=== PATIENT | male | born 1960 | race Caucasian/White ===

== ENCOUNTER 2017-03-11 17:49 | Emergency (ER) | payer OTHER ==
[~2017-03-11] VITALS: Ht 170.2 cm; Wt 70.0 kg
[~2017-03-11 17:49] MED LIST: ALPRAZOLAM1 MG PO; AMOXICILLIN500 MG PO; ANTIVERT PO; CEPHALEXIN500 MG PO; DILTIAZEM HCL120 M1 PO; DOXYCYCL HYC100 MG PO; DUONEB IN; FLUARIX QUADRIV1 IN2 IM; FLUTICASONE50 MCG; FUROSEMIDE40 MG PO; LISINOPRIL5 MG PO; LORTAB 1010 MG PO; LORTAB 5/3255 MG PO; MEDDOSEPAK PO; METFORMIN HCL1000 MG PO; METFORMIN500 MG PO; MORPHINE SUL30 M3 PO; MORPHINE SUL30 M5 PO; MUPIROCIN2 % EX; NASONEX50 MCG/AC NAB; NEBULIZE4 IN; OXYMORPHONE HYD30 MG PO; POTASSIUM CHLO10 MEQ PO; PRAVASTATIN20 MG PO; PROAIR HFA IN; PROMETHAZINE25 MG PO; ROBITUSSIN AC10 ML PO; SINGULAIR PO; SOMA350 MG PO; SONATA5 MG PO; SYMBICORT1 AE1 IN; ZITHROMAX250 MG PO
[2017-03-11] MEDS ORDERED: PERCOCET 5/325M1 TAB PO (18:12)
[2017-03-11 18:27] VITALS: BP 142/81
== END 2017-03-11 18:33 | disposition home or self-care (01) | DRG 159 ==
LOC: ED 17:49
DX: K08.89 Other specified disorders of teeth and supporting structures (principal); E11.9 Type 2 diabetes mellitus without complications; I10 Essential (primary) hypertension; E78.5 Hyperlipidemia, unspecified; Z98.890 Other specified postprocedural states

== ENCOUNTER 2017-04-21 08:35 | Emergency (ER) | payer MEDICARE ==
[~2017-04-21] VITALS: Ht 170.2 cm; Wt 90.0 kg
[~2017-04-21 08:35] MED LIST changes: +PERCOCET 5/325M1 TAB PO
[2017-04-21] MEDS ORDERED: ANUCORT-HC25 MG RE (10:25)
[2017-04-21 10:30] VITALS: BP 138/82
== END 2017-04-21 10:30 | disposition home or self-care (01) ==
LOC: ED 08:35
DX: K64.4 Residual hemorrhoidal skin tags (principal)

== ENCOUNTER 2017-04-28 13:48 | Emergency (ER) | payer MEDICARE ==
[~2017-04-28] VITALS: Ht 170.2 cm; Wt 88.4 kg
[~2017-04-28 13:48] MED LIST changes: +ANUCORT-HC25 MG RE
[2017-04-28] MEDS ORDERED: LORTAB 5/3255 MG PO (14:44)
[2017-04-28] MEDS ORDERED: FLEXERIL PO (14:44)
[2017-04-28] MEDS ORDERED: EC-NAPROSYN500 MG PO (14:44)
[2017-04-28 14:46] VITALS: BP 140/78
== END 2017-04-28 15:20 | disposition home or self-care (01) ==
LOC: ED 13:48
DX: M54.5 Low back pain (principal)

== ENCOUNTER 2018-05-20 09:22 | Emergency (ER) | payer MEDICARE ==
[~2018-05-20] VITALS: Ht 170.2 cm; Wt 96.8 kg
[~2018-05-20 09:22] MED LIST changes: -CEPHALEXIN500 M1 PO; -DOXYCYC MONO100 M2 PO; -HYDROCO/APAP1 TA9 PO
[2018-05-20 10:16] LABS: IMMATURE GRANULOCYTES 0.3 % (0.0-5.0); MEAN CORPUSCULAR HGB 30.8 pG CALC (26.0-32.0); MEAN CORPUSCULAR HGB CONC 33.9 g/L CALC (32.0-36.0); NEUT# 5.22 thou/uL (1.82-7.42); RED BLOOD COUNT 4.12 mill/uL (4.70-6.10); RED CELL DISTRI WIDTH 12.6 % (11.5-15.5)
[2018-05-20 10:18] LABS: HEMATOCRIT 37.5 % (39.0-50.0); HEMOGLOBIN 12.7 g/dl (14.0-18.0)
[2018-05-20 10:31] LABS: ALBUMIN 4.2 g/dL (3.2-5.0); ALKALINE PHOSPHATASE 69 u/l (38-126); ANION GAP 14 (6-22 (CALC)); BILIRUBIN, TOTAL 1.1 mg/dL (0.0-1.4); BUN 13 mg/dL (9-20); BUN/CREATININE RATIO 16 (12-20 (CALC)); CARBON DIOXIDE 27 mmol/l (22-30); CHLORIDE 98 mmol/l (95-108); CREATININE 0.8 mg/dL (0.7-1.3); GFR > 60 ML/MIN (>=60 (CALC)); GFR FOR AFR.AMER. > 60 ML/MIN (>=60 (CALC)); SGOT/AST 31 u/l (17-59); SODIUM 135 mmol/l (137-146); TOTAL PROTEIN 7.3 g/dL (6.3-8.2)
[2018-05-20] MEDS ORDERED: CEPHALEXIN500 M1 PO (10:53)
[2018-05-20] MEDS ORDERED: DOXYCYC MONO100 M2 PO (10:53)
[2018-05-20] MEDS ORDERED: HYDROCO/APAP1 TA9 PO (11:20)
[2018-05-20 13:30] VITALS: BP 117/62
== END 2018-05-20 13:30 | disposition home or self-care (01) ==
LOC: ED 09:22
PROVIDERS: Family Medicine
DX: S61.212A Laceration without foreign body of right middle finger without damage to nail, initial encounter (principal); L03.113 Cellulitis of right upper limb; R22.31 Localized swelling, mass and lump, right upper limb; R50.9 Fever, unspecified; W25.XXXA Contact with sharp glass, initial encounter; Y93.H9 Activity, other involving exterior property and land maintenance, building and construction; Y92.009 Unspecified place in unspecified non-institutional (private) residence as the place of occurrence of the external cause; E11.9 Type 2 diabetes mellitus without complications; E78.5 Hyperlipidemia, unspecified; I10 Essential (primary) hypertension

== ENCOUNTER → 2018-05-20 | Outpatient (REF) | payer MEDICARE ==
[~2018-05-20] MED LIST changes: +CEPHALEXIN500 M1 PO; +DOXYCYC MONO100 M2 PO; +EC-NAPROSYN500 MG PO; +FLEXERIL PO; +HYDROCO/APAP1 TA9 PO
[2018-05-20 13:51] LABS: HEMATOCRIT 36.6 % (39.0-50.0); HEMOGLOBIN 12.5 g/dl (14.0-18.0); IMMATURE GRANULOCYTES 0.3 % (0.0-5.0); MEAN CELL VOLUME 91.5 fL CALC (80.0-100.0); MEAN CORPUSCULAR HGB 31.3 pG CALC (26.0-32.0); MEAN CORPUSCULAR HGB CONC 34.2 g/L CALC (32.0-36.0); NEUT# 4.93 thou/uL (1.82-7.42); RED CELL DISTRI WIDTH 12.6 % (11.5-15.5)
[2018-05-20 14:26] LABS: ALKALINE PHOSPHATASE 66 u/l (38-126); ANION GAP 14 (6-22 (CALC)); BILIRUBIN, TOTAL 1.9 mg/dL (0.0-1.4); BUN 11 mg/dL (9-20); BUN/CREATININE RATIO 13 (12-20 (CALC)); CALCULATED LDLCHOLESTEROL 62 mg/dL (62-129 (CALC)); CARBON DIOXIDE 28 mmol/l (22-30); CHLORIDE 100 mmol/l (95-108); CHOLESTEROL HDL RATIO 2.8 (<4.4 (CALC)); CREATININE 0.9 mg/dL (0.7-1.3); GFR > 60 ML/MIN (>=60 (CALC)); GFR FOR AFR.AMER. > 60 ML/MIN (>=60 (CALC)); HDL CHOLESTEROL 49 mg/dL (>=40); POTASSIUM 4.3 mmol/l (3.5-5.1); SGOT/AST 31 u/l (17-59); SODIUM 138 mmol/l (137-146); TOTAL CHOLESTEROL 138 mg/dl (0-199); TOTAL PROTEIN 6.9 g/dL (6.3-8.2); TOTAL TRIGLYCERIDES 133 mg/dl (30-149); VLDL CHOLESTROL 27 mg/dl (8-62 (CALC))
== END | disposition home or self-care (01) ==
LOC: LAB 13:26
PROVIDERS: ATTEND Nurse Practitioner Family
DX: E11.9 Type 2 diabetes mellitus without complications (principal); E78.5 Hyperlipidemia, unspecified; I10 Essential (primary) hypertension

== ENCOUNTER 2018-05-21 09:52 | Emergency (ER) | payer MEDICARE ==
[~2018-05-21] VITALS: Ht 170.2 cm; Wt 90.0 kg
[2018-05-21 13:03] VITALS: BP 149/71
== END 2018-05-21 13:03 | disposition left against medical advice (07) ==
LOC: ED 09:52
DX: L03.011 Cellulitis of right finger (principal); S61.212D Laceration without foreign body of right middle finger without damage to nail, subsequent encounter; X58.XXXD Exposure to other specified factors, subsequent encounter; E11.9 Type 2 diabetes mellitus without complications; I10 Essential (primary) hypertension; E78.5 Hyperlipidemia, unspecified; Z91.19 Patient's noncompliance with other medical treatment and regimen

== ENCOUNTER → 2018-05-21 | Outpatient (REF) | payer MEDICARE ==
[~2018-05-21] MED LIST changes: +CEPHALEXIN500 M1 PO; +DOXYCYC MONO100 M2 PO; +HYDROCO/APAP1 TA9 PO
== END | disposition home or self-care (01) ==
LOC: LABSPEC 09:51
PROVIDERS: ATTEND Nurse Practitioner Family
DX: E11.9 Type 2 diabetes mellitus without complications (principal); E78.5 Hyperlipidemia, unspecified; I10 Essential (primary) hypertension

== ENCOUNTER 2019-09-06 18:33 | Emergency (ER) | payer MEDICARE ==
[~2019-09-06] VITALS: Ht 170.2 cm; Wt 98.6 kg
[2019-09-06 19:15] LABS: GFR 57 ML/MIN (>=60 (CALC)); GFR FOR AFR.AMER. > 60 ML/MIN (>=60 (CALC))
[2019-09-06 19:17] LABS: IMMATURE GRANULOCYTES 0.3 % (0.0-5.0); MEAN CELL VOLUME 90.1 fL CALC (80.0-100.0); MEAN CORPUSCULAR HGB 31.2 pG CALC (26.0-32.0); MEAN CORPUSCULAR HGB CONC 34.7 g/dL CAL (32.0-36.0); NEUT# 2.96 thou/uL (1.82-7.42); RED BLOOD COUNT 3.65 mill/uL (4.70-6.10); RED CELL DISTRI WIDTH 12.4 % (11.5-15.5)
[2019-09-06 19:26] LABS: HEMATOCRIT 32.9 % (39.0-50.0); HEMOGLOBIN 11.4 g/dl (14.0-18.0)
[2019-09-06 19:33] LABS: ALBUMIN 3.8 g/dL (3.2-5.0); ALKALINE PHOSPHATASE 52 u/l (38-126); ANION GAP 11 (6-22 (CALC)); BUN 17 mg/dL (9-20); BUN/CREATININE RATIO 14 (12-20 (CALC)); CARBON DIOXIDE 25 mmol/l (22-30); CHLORIDE 103 mmol/l (95-108); CREATININE 1.3 mg/dL (0.7-1.3); GFR 57 ML/MIN (>=60 (CALC)); GFR FOR AFR.AMER. > 60 ML/MIN (>=60 (CALC)); POTASSIUM 4.7 mmol/l (3.5-5.1); SGOT/AST 34 u/l (17-59); SODIUM 134 mmol/l (137-146)
[2019-09-06 19:35] LABS: ACT PARTIAL THROMBO TIME 26.7 SECONDS (20.0-32.5); PROTHROMBIN TIME 10.1 SECONDS (9.0-12.5)
[2019-09-06 19:45] LABS: MYOGLOBIN 57 ng/mL (0 - 121)
[2019-09-06 19:51] LABS: BILIRUBIN, TOTAL 0.8 mg/dL (0.0-1.4)
[2019-09-06 22:15] VITALS: BP 116/60
== END 2019-09-06 22:38 | disposition short-term general hospital (02) ==
LOC: ED 18:33
DX: I63.9 Cerebral infarction, unspecified (principal); I67.1 Cerebral aneurysm, nonruptured; G81.91 Hemiplegia, unspecified affecting right dominant side; R29.810 Facial weakness; R20.0 Anesthesia of skin; R47.01 Aphasia; R47.1 Dysarthria and anarthria; R29.706 NIHSS score 6; E11.9 Type 2 diabetes mellitus without complications; I10 Essential (primary) hypertension; Z79.84 Long term (current) use of oral hypoglycemic drugs; Z11.59 Encounter for screening for other viral diseases
CPT/HCPCS: Q9967

== ENCOUNTER 2020-08-01 20:52 | Emergency (ER) | payer MEDICARE ==
[~2020-08-01] VITALS: Ht 170.2 cm; Wt 84.5 kg
[2020-08-01 22:10] LABS: HEMATOCRIT 35.6 % (39.0-50.0); HEMOGLOBIN 11.5 g/dl (14.0-18.0); IMMATURE GRANULOCYTES 0.1 % (0.0-5.0); MEAN CELL VOLUME 93.2 fL CALC (80.0-100.0); MEAN CORPUSCULAR HGB 30.1 pG CALC (26.0-32.0); MEAN CORPUSCULAR HGB CONC 32.3 g/dL CAL (32.0-36.0); NEUT# 4.49 thou/uL (1.82-7.42); RED BLOOD COUNT 3.82 mill/uL (4.70-6.10); RED CELL DISTRI WIDTH 12.7 % (11.5-15.5)
[2020-08-01 22:17] LABS: ALBUMIN 4.4 g/dL (3.2-5.0); ALKALINE PHOSPHATASE 59 u/l (38-126); ANION GAP 9 (6-22 (CALC)); BILIRUBIN, TOTAL 0.9 mg/dL (0.0-1.4); BUN 27 mg/dL (9-20); BUN/CREATININE RATIO 22 (12-20 (CALC)); CARBON DIOXIDE 31 mmol/l (22-30); CHLORIDE 97 mmol/l (95-108); CREATININE 1.3 mg/dL (0.7-1.3); GFR 57 ML/MIN (>=60 (CALC)); GFR FOR AFR.AMER. > 60 ML/MIN (>=60 (CALC)); POTASSIUM 4.6 mmol/l (3.5-5.1); SGOT/AST 50 u/l (17-59); SODIUM 133 mmol/l (137-146)
[2020-08-01 22:29] LABS: URINE BILIRUBIN - DIPSTICK NEGATIVE (NEGATIVE); URINE BLOOD DIPSTICK NEGATIVE (NEGATIVE); URINE COLOR YELLOW; URINE GLUCOSE - DIPSTICK NEGATIVE (NEGATIVE); URINE KETONE NEGATIVE (NEGATIVE); URINE LEUK ESTERASE NEGATIVE (NEGATIVE); URINE PROTEIN - DIPSTICK NEGATIVE (NEG-TRACE); URINE UROBILINOGEN - DIPSTICK 0.2 E.U./dL (0.2)
[2020-08-01 22:35] LABS: URINE NITRITE - DIPSTICK NEGATIVE (Negative)
[2020-08-02 01:17] VITALS: BP 136/80
== END 2020-08-02 01:24 | disposition home or self-care (01) ==
LOC: ED 20:52
PROVIDERS: Family Medicine
PROC: 0T9B70Z Drainage of Bladder with Drainage Device, Via Natural or Artificial Opening (ICD-10-PCS; principal; 2020-08-01)
DX: R33.9 Retention of urine, unspecified (principal); I10 Essential (primary) hypertension; E11.9 Type 2 diabetes mellitus without complications; E78.5 Hyperlipidemia, unspecified; Z86.73 Personal history of transient ischemic attack (TIA), and cerebral infarction without residual deficits; Z79.4 Long term (current) use of insulin

== ENCOUNTER 2020-08-06 18:27 | Emergency (ER) | payer MEDICARE ==
[~2020-08-06] VITALS: Ht 170.2 cm; Wt 90.0 kg
[2020-08-06 19:17] VITALS: BP 124/90
== END 2020-08-06 19:18 | disposition home or self-care (01) ==
LOC: ED 18:27
DX: Z46.6 Encounter for fitting and adjustment of urinary device (principal); E11.9 Type 2 diabetes mellitus without complications; I10 Essential (primary) hypertension; E78.5 Hyperlipidemia, unspecified; Z86.73 Personal history of transient ischemic attack (TIA), and cerebral infarction without residual deficits; Z79.84 Long term (current) use of oral hypoglycemic drugs

== ENCOUNTER 2020-08-12 07:52 | Emergency (ER) | payer MEDICARE ==
[~2020-08-12] VITALS: Ht 170.2 cm; Wt 74.0 kg
[2020-08-12] MEDS ORDERED: GABAPENTIN300 M2 PO (09:29)
[2020-08-12] MEDS ORDERED: LANTUS100 UNIT SI (09:31)
[2020-08-12] MEDS ORDERED: XANAX0.5 MG PO (09:33)
[2020-08-12] MEDS ORDERED: ASPIRIN81 MG PO (09:33)
[2020-08-12] MEDS ORDERED: FLEXERIL5 M1 PO (09:49)
[2020-08-12] MEDS ORDERED: TORADOL PO (09:49)
[2020-08-12 09:56] VITALS: BP 130/72
== END 2020-08-12 10:00 | disposition home or self-care (01) ==
LOC: ED 07:52
DX: S06.9X9A Unspecified intracranial injury with loss of consciousness of unspecified duration, initial encounter (principal); S96.911A Strain of unspecified muscle and tendon at ankle and foot level, right foot, initial encounter; S50.11XA Contusion of right forearm, initial encounter; S60.212A Contusion of left wrist, initial encounter; S80.01XA Contusion of right knee, initial encounter; S30.0XXA Contusion of lower back and pelvis, initial encounter; S20.229A Contusion of unspecified back wall of thorax, initial encounter; I10 Essential (primary) hypertension; E11.9 Type 2 diabetes mellitus without complications; E78.5 Hyperlipidemia, unspecified; W10.9XXA Fall (on) (from) unspecified stairs and steps, initial encounter; Y92.009 Unspecified place in unspecified non-institutional (private) residence as the place of occurrence of the external cause; Z86.73 Personal history of transient ischemic attack (TIA), and cerebral infarction without residual deficits; Z79.82 Long term (current) use of aspirin; Z79.4 Long term (current) use of insulin

== ENCOUNTER 2020-10-11 12:25 | Inpatient (IN) | payer MEDICARE ==
[~2020-10-11] VITALS: Ht 170.2 cm; Wt 93.0 kg
[~2020-10-11 12:25] MED LIST changes: +ASPIRIN81 MG PO; +FLEXERIL5 M1 PO; +GABAPENTIN300 M2 PO; +LANTUS100 UNIT SI; +TORADOL PO; +XANAX0.5 MG PO
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
--- NOTE | 2020-10-11 12:25 | NUR ---
PATIENT ARRIVED EMS INTUBATED 7.5 FR AND 21 AT THE LIP POSITIVE BREATH SOUNDS BILATERALLY
[2020-10-11 13:05] LABS: ACT PARTIAL THROMBO TIME 22.5 SECONDS (20.0-32.5); PROTHROMBIN TIME 10.5 SECONDS (9.0-12.5)
[2020-10-11 13:11] LABS: HEMATOCRIT 34.1 % (39.0-50.0); HEMOGLOBIN 11.7 g/dl (14.0-18.0); IMMATURE GRANULOCYTES 0.3 % (0.0-5.0); MEAN CELL VOLUME 89.7 fL CALC (80.0-100.0); MEAN CORPUSCULAR HGB 30.8 pG CALC (26.0-32.0); MEAN CORPUSCULAR HGB CONC 34.3 g/dL CAL (32.0-36.0); NEUT# 5.88 thou/uL (1.82-7.42); RED BLOOD COUNT 3.8 mill/uL (4.70-6.10); RED CELL DISTRI WIDTH 12.4 % (11.5-15.5)
[2020-10-11 13:14] LABS: ALBUMIN 4.1 g/dL (3.2-5.0); ALKALINE PHOSPHATASE 66 u/l (38-126); BILIRUBIN, TOTAL 0.9 mg/dL (0.0-1.4); BUN 25 mg/dL (9-20); BUN/CREATININE RATIO 17 (12-20 (CALC)); CHLORIDE 100 mmol/l (95-108); CREATININE 1.5 mg/dL (0.7-1.3); GFR 48 ML/MIN (>=60 (CALC)); GFR FOR AFR.AMER. 58 ML/MIN (>=60 (CALC)); LIPASE 205 u/l (23-300); MAGNESIUM 1.8 mg/dL (1.6-2.3); POTASSIUM 4.4 mmol/l (3.5-5.1); SGOT/AST 39 u/l (17-59); SODIUM 131 mmol/l (137-146); TOTAL PROTEIN 7.6 g/dL (6.3-8.2)
[2020-10-11 13:15] LABS: ANION GAP 15 (6-22 (CALC)); CARBON DIOXIDE 20 mmol/l (22-30)
[2020-10-11 13:21] LABS: URINE BLOOD DIPSTICK NEGATIVE (NEGATIVE); URINE COLOR YELLOW; URINE GLUCOSE - DIPSTICK 100 mg/dL (NEGATIVE); URINE KETONE TRACE mg/dL (NEGATIVE); URINE LEUK ESTERASE NEGATIVE (NEGATIVE); URINE PH 5.5 (4.5-8.0); URINE PROTEIN - DIPSTICK 30 mg/dL (NEG-TRACE); URINE SPECIFIC GRAVITY >=1.030; URINE UROBILINOGEN - DIPSTICK 0.2 E.U./dL (0.2)
[2020-10-11 13:27] LABS: URINE BILIRUBIN - DIPSTICK NEGATIVE (NEGATIVE); URINE NITRITE - DIPSTICK NEGATIVE (Negative)
--- NOTE | 2020-10-11 13:30 | NUR ---
PATIENT AWAKE UNDER SEDATION MD NOTIFIED PATIENT TRYING TO PULL AND EQUIPMENT
[2020-10-11 13:35] LABS: URINE HYALINE CAST MODERATE lpf (NONE-RARE); URINE SQUAMOUS EPITHELIAL CELL FEW EPI/hpf (0-FEW)
--- NOTE | 2020-10-11 13:45 | NUR ---
TAMI 100MCG IVP ADMINSTERED BY DR NUGENT
--- NOTE | 2020-10-11 14:30 | NUR ---
PATIENT REMAINS AWAKE WITH SEDATION MEDICATIONS ON BOARD VERBAL ORDERS RECIEVED AND DIPRIVAN BOLUS 100MCG ADMINSTERED IVP BY DR NUGENT
--- NOTE | 2020-10-11 14:45 | NUR ---
TAMI 50MCG IVP ADMINSTERED BY DR NUGENT
--- NOTE | 2020-10-11 15:12 | NUR ---
ALL SEDATION STOPPED PATIENT AWAKE AND RESPONDING WITH EYE BLINKING AND HAND GRASPS WHEN ASKED QUESTIONS. MD AT BEDSIDE WITH RESPIRATORY.
--- NOTE | 2020-10-11 15:14 | NUR ---
PATIENT EXTUBATED PATIENT ALERT AND ORIENTED TIMES THREE GAG REFLEX INTACT. PATIENT ANSWERING QUESTIONS WITH MD AT BEDSIDE. PATIENT STATES JUST FELL AND FACE PLANTED.
--- NOTE | 2020-10-11 15:24 | NUR ---
PER DR. NUGENT EXTUBATED PT. PT SECTIONED AND EXTUBATED. MD AT BEDSIDE DURING EXTUBATION.
--- NOTE | 2020-10-11 15:34 | NUR ---
1228 C- COLLAR APPLIED 1230 PROPOFOL STARTED 10MCG/KG/MIN/ SECONDARY IV INITIATED 1233 BOLUS SODIUM CHLORIDE 0.9% 200ML VIA PRESSURE BAG STARTED 1234 HER CATHTER 16 FR INSERTED USING STERILE TECHNIQUE 1242 4MG VERSED VIA IV GIVEN 1245 16FR OG TUBE INSERTED VERIFIED VIA POSITIVE AIR SOUNDS 1246 20MG ETOMIDATE IVP BY PHYSICIAN 1246 50 MCG FENTANYL IVP PATIENT AWAKE AND FOLLOWING COMMANDS VIA EYE BLINKING AND HAND GRASPS WHEN ASKED QUESTIONS 1248 PATIENT PATIENT SEDATED AND ROCURONIUM 100MG ADMINSTERED IVP 1250 200ML BOLUS OF SODIUM CHLORIDE 0.9% COMPLETED 1254 DIPROVAN STOPPED AND VERSED DRIP VIA IV INITIATED AT 10ML/HR 1303 DIPRIVAN RESTARTED AT 5MCG/KG/MIN 1308 EKG COMPLETED 1447 FENTANYL 100MCG IVP 1454 C-SPINE CLEARED AND REMOVED
--- NOTE | 2020-10-11 16:39 | NUR ---
PATIENT TRANSPORTED TO ICU AWAKE ALERT AND ORIENTED TIMES THREE. 1800 ML CLEAR STRAW COLORED URINE REMOVED FROM HER BAG
--- NOTE | 2020-10-11 16:45 | NUR ---
RECEIVED FROM ER TO ICU 8. ALERT AND ORIENTED X4. PERRL. EXPRESSES C/O PAIN TO NOSE AND RIGHT UPPER BACK. MOVES ALL EXTRIMITIES. S1-S2 HEART TONES NOTED. LUNGS SOUNDS CLEAR. ROOM AIR. ABD ROUND, SOFT, DISTENDED. HER CATH INTACT CLEAR YELLOW URINE NOTED. PEDAL PULSE BILAT 2+. ORIENTED TO ROOM. CALL LIGHT WITHIN REACH.
[2020-10-11 17:00] VITALS: BP 113/66
[2020-10-11 17:15] VITALS: BP 114/78
[2020-10-11 17:30] VITALS: BP 112/75
[2020-10-11 17:45] VITALS: BP 140/61
--- NOTE | 2020-10-11 18:20 | NUR ---
PT ARRIVES TO ROOM 8 IN ICU BY STRETCHER FROM ER, SEEN ALERT AND ORIENTED X 3. PT WITH PAIN TO NOSE WHERE SMALL LAC IN SEEN. PT WISHES THAT HE COULD BLOW HIS NOSE, BUT PAIN PREVENTS HIM. PT DENIES DIZZINESS, SHORTNESS OF BREATH.
[2020-10-11 19:18] VITALS: BP 111/63
--- NOTE | 2020-10-11 20:15 | NUR ---
PATIENT IS RESTING IN BED ON ROUNDS. PATIENT ALERT AND ORIENTED. FACE SYMMETRICAL. SPEECH CLEAR AND APPROPRIATE. FOLLOWS COMMANDS. PATIENT STATES [facility] HAS NOT PROVIDED HIM WITH ANY RELIEF OF HIS HEADACHE, FACIAL AND NOSE DISCOMFORTS. SOME OOZING OF BLOOD FROM LACERATION TO BRIDGE OF NOSE. NOSE SWOLLEN. COOL PACK APPLIED. SALINE LOCK INTACT IN RAC. RFA SITE FLUSHED AND PATENT, NS STARTED AT 100 ML/HR ORDERED. LFA EMS SITE DC'D WITH CATHETER INTACT. HER DRAINS CLEAR YELLOW URINE. MANAGER BABY SHOWS SR. DISCUSSED PLAN OF CARE. CALL CHAUDHRY IN REACH.
--- NOTE | 2020-10-11 21:11 | NUR ---
INFORMED DR RASMUSSEN OF PATIENT C/O PAIN. NEW ORDERS RECEIVED.
--- NOTE | 2020-10-11 21:20 | NUR ---
CALL TO PATIENT HOME SPOKE WITH HIS MOTHER REGARDING HOME MEDICATIONS. PATIENT MOM STATES SHE CANT REACH THEM AND SHE WILL HAVE PATIENTS DAUGHTER PHONE ICU TO GIVE US HOME MED LIST.
[2020-10-11 22:00] VITALS: BP 136/71
--- NOTE | 2020-10-11 22:25 | NUR ---
SEMAJ HOLLOWAY APPLIED. PATIENT C/O HURTING ALL OVER, ESPECIALLY HEADACHE AND NOSE PAIN. MEDICATED WITH MORPHINE 2 MG IVP ORDERED FOR C/O PAIN. LACERATION TO BRIDGE OF NOSE CLEANSED WITH WOUND CARE SOLUTION- XERORM 2X2 COVERED WITH STERILE 2X2 TO SITE, SECURED WITH SMALL TEGADERM. ICE BAG TO TOP OF HEAD AND COOL PACK TO BRIDGE OF NOSE. VSS. MONITOR SR.
[2020-10-12] VITALS (12 sets, daily range): BP systolic 104–130; BP diastolic 58–72
--- NOTE | 2020-10-12 | NUR ---
SLEEPING SOUNDLY. RESP NON-LABORED. VSS.
--- NOTE | 2020-10-12 02:00 | NUR ---
VSS. IV INFUSING WITHOUT INCIDENT. SR ON MONITOR. PATIENT CONTINUES TO REST QUIETLY WITH EYES CLOSED.
--- NOTE | 2020-10-12 04:10 | NUR ---
NO CHANGES TO REPORT. IN NO APPARENT DISTRESS. VSS. RESP NON-LABORED.
--- NOTE | 2020-10-12 05:31 | NUR ---
MEDICATED WITH MORPHINE 2 MG IVP ORDERED FOR C/O HEADACHE, NOSE PAIN AND GENERALIZED BODY ACHES.
[2020-10-12 05:43] LABS: HEMATOCRIT 33.5 % (39.0-50.0); HEMOGLOBIN 11.6 g/dl (14.0-18.0); MEAN CELL VOLUME 90.8 fL CALC (80.0-100.0); MEAN CORPUSCULAR HGB 31.4 pG CALC (26.0-32.0); MEAN CORPUSCULAR HGB CONC 34.6 g/dL CAL (32.0-36.0); RED BLOOD COUNT 3.69 mill/uL (4.70-6.10); RED CELL DISTRI WIDTH 12.7 % (11.5-15.5)
--- NOTE | 2020-10-12 05:57 | NUR ---
RESTING IN BED WATCHING MORNING NEWS. PATIENT STATES PAIN IS EASING.
[2020-10-12 06:07] LABS: ANION GAP 12 (6-22 (CALC)); BUN 14 mg/dL (9-20); BUN/CREATININE RATIO 15 (12-20 (CALC)); CALCULATED LDLCHOLESTEROL 106 mg/dL (62-129 (CALC)); CARBON DIOXIDE 23 mmol/l (22-30); CHLORIDE 107 mmol/l (95-108); CHOLESTEROL HDL RATIO 5.8 (<4.4 (CALC)); CREATININE 0.9 mg/dL (0.7-1.3); GFR > 60 ML/MIN (>=60 (CALC)); GFR FOR AFR.AMER. > 60 ML/MIN (>=60 (CALC)); HDL CHOLESTEROL 30 mg/dL (>=40); POTASSIUM 4.4 mmol/l (3.5-5.1); SODIUM 137 mmol/l (137-146); TOTAL CHOLESTEROL 175 mg/dl (0-199); TOTAL TRIGLYCERIDES 195 mg/dl (30-149); VLDL CHOLESTROL 39 mg/dl (8-62 (CALC))
--- NOTE | 2020-10-12 08:05 | NUR ---
PT SEEN ALERT, ORIENTED HE RESTS IN THE BED. LUNGS CLEAR, RA. PT WITH DRESSING TO BRIDGE OF NOSE PER OOZING FROM LACERATION. PT STATES PAIN IS BODYWIDE, FOCUSES ON NOSE AND THROAT. PT STATES NO BREAKFAST THIS MORNING FOR HIM, SAYING THAT HE DOES NOT THINK HE CAN EVEN SWALLOW WITH THROAT SORE IT IS. ICE PACK IN PLACE TO NECK AREA. NO ACUTE DISTRESS, PT DOES DESCRIBE SORENESS TO RIBS, ARMS.
--- NOTE | 2020-10-12 13:56 | NUR ---
PT WITH IMPROVED PAIN CONTROL AFTER MED CHANGED TO OXYCODONE. PT HAS INTERACTED WITH MOTHER WHO CALLED. PT STILL WITH BODY STIFFNESS, NOT ABLE TO MOVE WITHOUT AGGRAVATING HIS PAIN.
--- NOTE | 2020-10-12 16:00 | NUR ---
PT TO MRI BUT WAS UNABLE TO TOLERATE COMPLETE TEST. PT RETURNED TO ROOM, BACK IN BED.
--- NOTE | 2020-10-12 20:04 | NUR ---
SITTING IN BED WATCHING TV VOICES C/O FACIAL PAIN DRESSING INTACT BRIDGE OF NOSE VSS IV NORMAL SALINE INFUSING TO RT FORARM IV AT 100CC/HR.
--- NOTE | 2020-10-12 20:57 | NUR ---
dressing removed from bridge of nose cleaned with skin cleanser left open to air.
--- NOTE | 2020-10-12 22:02 | NUR ---
RESTING IN BED WITH EYES CLOSED VSS IV INFUSING
[2020-10-13] VITALS (8 sets, daily range): BP systolic 111–138; BP diastolic 61–75
--- NOTE | 2020-10-13 00:17 | NUR ---
PT ROUSED FOR ASSESSMENT NO ACUTE CHANGES NOTED VSS MONITOR SHOWS SR RATE 80S DENIES NEED FOR PAIN MEDICATION AT THIS TIME
--- NOTE | 2020-10-13 02:00 | NUR ---
RESTING IN BED WITH EYES CLOSED VSS IV INFUSING MONITOR SHOWS SR
--- NOTE | 2020-10-13 03:58 | NUR ---
ROUSED FOR ASSESSMENT NO CHANGES NOTED DENIES C/O AT THIS TIME FOLLOWS REQUESTS STATES WANTS TO GO BACK TO SLEEP HER DRAINING CLEAR YELLOW URINE
[2020-10-13 05:56] LABS: HEMATOCRIT 38.7 % (39.0-50.0); MEAN CORPUSCULAR HGB 32.7 pG CALC (26.0-32.0); MEAN CORPUSCULAR HGB CONC 35.1 g/dL CAL (32.0-36.0); RED BLOOD COUNT 4.16 mill/uL (4.70-6.10); RED CELL DISTRI WIDTH 13.2 % (11.5-15.5)
[2020-10-13 05:58] LABS: HEMOGLOBIN 13.6 g/dl (14.0-18.0)
[2020-10-13 06:09] LABS: CREATININE 1.5 mg/dL (0.7-1.3); POTASSIUM 3.9 mmol/l (3.5-5.1)
--- NOTE | 2020-10-13 06:12 | NUR ---
AWAKE C/O PAIN IN LEGS MEDICATED STATES PAIN HAS IMPROVED SOME VSS TAKING PO FLUIDS WITHOUT DIFFICULTY
--- NOTE | 2020-10-13 08:00 | NUR ---
PATIENT IS A/O X3. ABLE TO MAKE NEEDS KNOWN. COMPLAINS OF PAIN 10/10 GENERALIZED PAIN. 3MM PERRLA. VITALS SIGNS. CLEAR LUNG SOUNDS.ACTIVE BOWEL SOUNDS. NORMAL HEART SOUNDS. NO EDEMA NOTED. STRONG PULSES. SAFETY MEASURES IN PLACE. CALL LIGHT IN REACH. WILL CONTINUE TO MONITOR.
--- NOTE | 2020-10-13 11:58 | NUR ---
Physical Therapy Visit Patient was seen and treated today. Patient identified by full name and date of . Physical Therapy Management: 1. Ankle plantar and dosiflexion x 10 repetitions. 2. Quad-setting x 10 repetitions 3. Hip abduction-aduction x 10 repetitions. 4. Hip and knee x 10 repetitions. 5. Supine to sit and sit to supine x 2 repetitions. 6. Sitting tolerance x 3-5 minutes. 7. Standing tolerance x 3-5 minutes. 8. Standing hip and knee flexions x 10 repetitions. 9[address]ing in place x 10 repetitions. Patient was able to perform all exercises with minimal fatigue. Unsteadiness observed while patient is attempting to sit and stand. Fall precautions reviewed. Patient verbalized understanding.
--- NOTE | 2020-10-13 13:00 | NUR ---
PATIENT'S HER WAS REMOVED PER DOCTORS ORDERS.
[2020-10-13] MEDS ORDERED: CELEXA20 MG PO (13:02)
[2020-10-13] MEDS ORDERED: ONE TOUCH ULTRA 100 (13:03)
[2020-10-13] MEDS ORDERED: GABAPENTIN300 M2 PO (13:03)
[2020-10-13] MEDS ORDERED: ALPRAZOLAM XR0.5 MG PO (13:04)
[2020-10-13] MEDS ORDERED: PRAVASTATIN40 MG PO (13:04)
[2020-10-13] MEDS ORDERED: TIZANIDINE4 MG PO (13:04)
[2020-10-13] MEDS ORDERED: PROTONIX40 M4 PO (13:04)
[2020-10-13] MEDS ORDERED: AVAPRO300 MG PO (13:05)
[2020-10-13] MEDS ORDERED: OXYCODO-APAP1 TA2 PO (13:05)
[2020-10-13] MEDS ORDERED: TRESIBA FL100 UNIT/M (13:05)
--- NOTE | 2020-10-13 14:00 | NUR ---
PATIENT WALKING AROUND ROOM. STATED HE FEELS BETTER AND WANTS TO "WORKOUT".
--- NOTE | 2020-10-13 15:50 | NUR ---
PATIENT LEFT THE FLOOR IN A WHEELCHAIR, DISCHARGED. STABLE CONDITION.
== END 2020-10-13 15:50 | disposition home or self-care (01) | DRG 312 ==
LOC: ED 12:25 → ED-I 15:23 → ED 15:43 → ICU 15:44
PROVIDERS: Emergency Medicine; ADMIT Hospitalist; ATTEND Hospitalist
PROC: 0T9B70Z Drainage of Bladder with Drainage Device, Via Natural or Artificial Opening (ICD-10-PCS; principal; 2020-10-11)
DX: R55 Syncope and collapse (principal); S01.21XA Laceration without foreign body of nose, initial encounter; S50.11XA Contusion of right forearm, initial encounter; S60.212A Contusion of left wrist, initial encounter; S80.01XA Contusion of right knee, initial encounter; S30.0XXA Contusion of lower back and pelvis, initial encounter; S96.911A Strain of unspecified muscle and tendon at ankle and foot level, right foot, initial encounter; I10 Essential (primary) hypertension; I67.1 Cerebral aneurysm, nonruptured; M54.2 Cervicalgia; G89.29 Other chronic pain; E11.40 Type 2 diabetes mellitus with diabetic neuropathy, unspecified; F40.240 Claustrophobia; E78.5 Hyperlipidemia, unspecified; W18.30XA Fall on same level, unspecified, initial encounter; Y92.009 Unspecified place in unspecified non-institutional (private) residence as the place of occurrence of the external cause; Z53.8 Procedure and treatment not carried out for other reasons; Z86.73 Personal history of transient ischemic attack (TIA), and cerebral infarction without residual deficits; Z79.891 Long term (current) use of opiate analgesic; Z20.822 Contact with and (suspected) exposure to COVID-19
CPT/HCPCS: Q9967

== ENCOUNTER 2020-10-23 09:14 | Observation (INO) | payer MEDICARE ==
[2020-10-23] VITALS (30 sets, daily range): BP systolic 104–172; BP diastolic 52–75
[~2020-10-23 09:14] MED LIST changes: +ALPRAZOLAM XR0.5 MG PO; +AVAPRO300 MG PO; +CELEXA20 MG PO; +ONE TOUCH ULTRA 100; +OXYCODO-APAP1 TA2 PO; +PRAVASTATIN40 MG PO; +PROTONIX40 M4 PO; +TIZANIDINE4 MG PO; +TRESIBA FL100 UNIT/M
[2020-10-23 10:05] LABS: IMMATURE GRANULOCYTES 0.2 % (0.0-5.0); MEAN CELL VOLUME 95.7 fL CALC (80.0-100.0); MEAN CORPUSCULAR HGB 31.5 pG CALC (26.0-32.0); MEAN CORPUSCULAR HGB CONC 32.9 g/dL CAL (32.0-36.0); NEUT# 3.46 thou/uL (1.82-7.42); RED BLOOD COUNT 2.32 mill/uL (4.70-6.10); RED CELL DISTRI WIDTH 13.5 % (11.5-15.5)
[2020-10-23 10:08] LABS: HEMATOCRIT 22.2 % (39.0-50.0); HEMOGLOBIN 7.3 g/dl (14.0-18.0)
[2020-10-23 10:21] LABS: ALKALINE PHOSPHATASE 48 u/l (38-126); ANION GAP 12 (6-22 (CALC)); CARBON DIOXIDE 18 mmol/l (22-30); CHLORIDE 105 mmol/l (95-108); CREATININE 2.2 mg/dL (0.7-1.3); GFR 31 ML/MIN (>=60 (CALC)); GFR FOR AFR.AMER. 37 ML/MIN (>=60 (CALC)); LIPASE 17 u/l (23-300); MAGNESIUM 2.1 mg/dL (1.6-2.3); POTASSIUM 4.1 mmol/l (3.5-5.1); SGOT/AST 47 u/l (17-59); SODIUM 131 mmol/l (137-146)
[2020-10-23 10:22] LABS: ALBUMIN 2.7 g/dL (3.2-5.0); BILIRUBIN, TOTAL 0.3 mg/dL (0.0-1.4); BUN 48 mg/dL (9-20); BUN/CREATININE RATIO 22 (12-20 (CALC)); TOTAL PROTEIN 5.4 g/dL (6.3-8.2)
[2020-10-23 10:52] LABS: TSH, 3RD GENERATION 1.81 uIU/mL (0.47 - 4.68)
[2020-10-23 11:07] LABS: ACT PARTIAL THROMBO TIME 32.4 SECONDS (20.0-32.5); PROTHROMBIN TIME 10.4 SECONDS (9.0-12.5)
[2020-10-23 11:30] LABS: URINE BILIRUBIN - DIPSTICK NEGATIVE (NEGATIVE); URINE BLOOD DIPSTICK NEGATIVE (NEGATIVE); URINE COLOR YELLOW; URINE GLUCOSE - DIPSTICK NEGATIVE (NEGATIVE); URINE KETONE NEGATIVE (NEGATIVE); URINE LEUK ESTERASE NEGATIVE (NEGATIVE); URINE PH 5.5 (4.5-8.0); URINE PROTEIN - DIPSTICK NEGATIVE (NEG-TRACE); URINE UROBILINOGEN - DIPSTICK 0.2 E.U./dL (0.2)
[2020-10-23 11:31] LABS: URINE NITRITE - DIPSTICK NEGATIVE (Negative)
[2020-10-24] VITALS (12 sets, daily range): BP systolic 126–167; BP diastolic 53–74
[2020-10-24 05:47] LABS: MEAN CORPUSCULAR HGB 29.2 pG CALC (26.0-32.0); MEAN CORPUSCULAR HGB CONC 32.7 g/dL CAL (32.0-36.0); RED BLOOD COUNT 3.84 mill/uL (4.70-6.10); RED CELL DISTRI WIDTH 17.2 % (11.5-15.5)
[2020-10-24 05:53] LABS: HEMATOCRIT 34.2 % (39.0-50.0); HEMOGLOBIN 11.2 g/dl (14.0-18.0); MEAN CELL VOLUME 89.1 fL CALC (80.0-100.0)
[2020-10-24 06:01] LABS: CALCULATED LDLCHOLESTEROL 72 mg/dL (62-129 (CALC)); CHLORIDE 107 mmol/l (95-108); HDL CHOLESTEROL 33 mg/dL (>=40); MAGNESIUM 2.1 mg/dL (1.6-2.3); POTASSIUM 4.9 mmol/l (3.5-5.1); SODIUM 137 mmol/l (137-146); TOTAL CHOLESTEROL 131 mg/dl (0-199); TOTAL TRIGLYCERIDES 129 mg/dl (30-149); VLDL CHOLESTROL 26 mg/dl (8-62 (CALC))
[2020-10-24 06:02] LABS: ANION GAP 11 (6-22 (CALC)); BUN 22 mg/dL (9-20); BUN/CREATININE RATIO 20 (12-20 (CALC)); CARBON DIOXIDE 24 mmol/l (22-30); CREATININE 1.1 mg/dL (0.7-1.3); GFR > 60 ML/MIN (>=60 (CALC)); GFR FOR AFR.AMER. > 60 ML/MIN (>=60 (CALC))
== END 2020-10-24 14:20 | disposition home or self-care (01) ==
LOC: ED 09:14 → ED-I 10:45 → ED 11:24 → ICU 11:25 → ED 11:32 → ED-I 11:32 → ICU 10-24 14:20
PROVIDERS: Emergency Medicine; Nurse Practitioner; ADMIT Hospitalist; ATTEND Hospitalist
PROC: 30233N1 Transfusion of Nonautologous Red Blood Cells into Peripheral Vein, Percutaneous Approach (ICD-10-PCS; principal; 2020-10-23)
PROC: 30233N1 Transfusion of Nonautologous Red Blood Cells into Peripheral Vein, Percutaneous Approach (ICD-10-PCS; 2020-10-23)
PROC: 0T9B70Z Drainage of Bladder with Drainage Device, Via Natural or Artificial Opening (ICD-10-PCS; 2020-10-23)
DX: I95.9 Hypotension, unspecified (principal); D64.9 Anemia, unspecified; N17.9 Acute kidney failure, unspecified; E83.51 Hypocalcemia; I12.9 Hypertensive chronic kidney disease with stage 1 through stage 4 chronic kidney disease, or unspecified chronic kidney disease; E11.22 Type 2 diabetes mellitus with diabetic chronic kidney disease; N18.4 Chronic kidney disease, stage 4 (severe); E11.40 Type 2 diabetes mellitus with diabetic neuropathy, unspecified; E78.5 Hyperlipidemia, unspecified; M54.2 Cervicalgia; G89.29 Other chronic pain; Z79.891 Long term (current) use of opiate analgesic; Z79.4 Long term (current) use of insulin; Z86.73 Personal history of transient ischemic attack (TIA), and cerebral infarction without residual deficits; Z20.822 Contact with and (suspected) exposure to COVID-19
CPT/HCPCS: P9016

== ENCOUNTER 2021-07-06 16:14 | Emergency (ER) | payer MEDICARE ==
[~2021-07-06] VITALS: Ht 170.2 cm; Wt 85.0 kg
[2021-07-06] VITALS (11 sets, daily range): BP systolic 124–157; BP diastolic 77–103
[2021-07-06 17:01] LABS: HEMOGLOBIN 14.9 g/dl (14.0-18.0); MEAN CELL VOLUME 90.9 fL CALC (80.0-100.0); MEAN CORPUSCULAR HGB 31.5 pG CALC (26.0-32.0); MEAN CORPUSCULAR HGB CONC 34.7 g/dL CAL (32.0-36.0); NEUT# 3.94 thou/uL (1.82-7.42); RED BLOOD COUNT 4.73 mill/uL (4.70-6.10); RED CELL DISTRI WIDTH 11.8 % (11.5-15.5)
[2021-07-06 17:15] LABS: ALBUMIN 4.5 g/dL (3.2-5.0); ALKALINE PHOSPHATASE 98 u/l (38-126); BUN 19 mg/dL (9-20); BUN/CREATININE RATIO 19 (12-20 (CALC)); CHLORIDE 104 mmol/l (95-108); GFR > 60 ML/MIN (>=60 (CALC)); GFR FOR AFR.AMER. > 60 ML/MIN (>=60 (CALC)); POTASSIUM 4.4 mmol/l (3.5-5.1); SGOT/AST 23 u/l (17-59); SODIUM 140 mmol/l (137-146); TOTAL PROTEIN 8.2 g/dL (6.3-8.2)
[2021-07-06 17:20] LABS: ANION GAP 16 (6-22 (CALC)); BILIRUBIN, TOTAL 0.7 mg/dL (0.0-1.4); CARBON DIOXIDE 24 mmol/l (22-30)
[2021-07-06] MEDS ORDERED: TRAMADOL HYDROC50 M1 PO (18:51)
== END 2021-07-06 18:50 | disposition home or self-care (01) ==
LOC: ED 16:14
PROVIDERS: Family Medicine
DX: R56.9 Unspecified convulsions (principal); S00.83XA Contusion of other part of head, initial encounter; E11.9 Type 2 diabetes mellitus without complications; I10 Essential (primary) hypertension; E78.5 Hyperlipidemia, unspecified; W19.XXXA Unspecified fall, initial encounter; Y92.000 Kitchen of unspecified non-institutional (private) residence as the place of occurrence of the external cause; Z86.73 Personal history of transient ischemic attack (TIA), and cerebral infarction without residual deficits; Z95.818 Presence of other cardiac implants and grafts; Z79.4 Long term (current) use of insulin

== ENCOUNTER 2021-07-08 13:17 | Emergency (ER) | payer MEDICARE ==
[~2021-07-08] VITALS: Ht 170.2 cm; Wt 100.0 kg
[2021-07-08] VITALS (16 sets, daily range): BP systolic 108–205; BP diastolic 74–135
[~2021-07-08 13:17] MED LIST changes: +TRAMADOL HYDROC50 M1 PO
[2021-07-08 13:54] LABS: HEMATOCRIT 41.4 % (39.0-50.0); HEMOGLOBIN 14.1 g/dl (14.0-18.0); IMMATURE GRANULOCYTES 0.3 % (0.0-5.0); MEAN CELL VOLUME 90.8 fL CALC (80.0-100.0); MEAN CORPUSCULAR HGB 30.9 pG CALC (26.0-32.0); MEAN CORPUSCULAR HGB CONC 34.1 g/dL CAL (32.0-36.0); NEUT# 2.62 thou/uL (1.82-7.42); RED BLOOD COUNT 4.56 mill/uL (4.70-6.10); RED CELL DISTRI WIDTH 11.8 % (11.5-15.5)
[2021-07-08 14:06] LABS: ALBUMIN 4.3 g/dL (3.2-5.0); ALKALINE PHOSPHATASE 113 u/l (38-126); ANION GAP 14 (6-22 (CALC)); BUN 16 mg/dL (9-20); BUN/CREATININE RATIO 18 (12-20 (CALC)); CARBON DIOXIDE 25 mmol/l (22-30); CHLORIDE 103 mmol/l (95-108); CPK 53 u/l (52-200); CREATININE 0.9 mg/dL (0.7-1.3); GFR > 60 ML/MIN (>=60 (CALC)); GFR FOR AFR.AMER. > 60 ML/MIN (>=60 (CALC)); LIPASE 50 u/l (23-300); POTASSIUM 4.4 mmol/l (3.5-5.1); SGOT/AST 23 u/l (17-59); SODIUM 138 mmol/l (137-146); TOTAL PROTEIN 8.1 g/dL (6.3-8.2)
[2021-07-08 14:09] LABS: BILIRUBIN, TOTAL 0.4 mg/dL (0.0-1.4)
[2021-07-08 14:22] LABS: URINE BILIRUBIN - DIPSTICK NEGATIVE (NEGATIVE); URINE BLOOD DIPSTICK NEGATIVE (NEGATIVE); URINE COLOR YELLOW; URINE GLUCOSE - DIPSTICK 500 mg/dL (NEGATIVE); URINE KETONE NEGATIVE (NEGATIVE); URINE LEUK ESTERASE NEGATIVE (NEGATIVE); URINE PH 5.5 (4.5-8.0); URINE PROTEIN - DIPSTICK NEGATIVE (NEG-TRACE); URINE SPECIFIC GRAVITY <=1.005; URINE UROBILINOGEN - DIPSTICK 0.2 E.U./dL (0.2)
[2021-07-08 14:24] LABS: URINE NITRITE - DIPSTICK NEGATIVE (Negative)
== END 2021-07-08 16:10 | disposition short-term general hospital (02) ==
LOC: ED 13:17
PROVIDERS: Family Medicine
PROC: 0BH17EZ Insertion of Endotracheal Airway into Trachea, Via Natural or Artificial Opening (ICD-10-PCS; principal; 2021-07-08)
PROC: 5A1935Z Respiratory Ventilation, Less than 24 Consecutive Hours (ICD-10-PCS; 2021-07-08)
PROC: 05HM33Z Insertion of Infusion Device into Right Internal Jugular Vein, Percutaneous Approach (ICD-10-PCS; 2021-07-08)
DX: R40.4 Transient alteration of awareness (principal); R56.9 Unspecified convulsions; I10 Essential (primary) hypertension; E11.9 Type 2 diabetes mellitus without complications; E78.5 Hyperlipidemia, unspecified; Z86.73 Personal history of transient ischemic attack (TIA), and cerebral infarction without residual deficits; Z95.818 Presence of other cardiac implants and grafts; Z79.4 Long term (current) use of insulin
CPT/HCPCS: J1953

== ENCOUNTER 2021-10-10 10:38 | Observation (INO) | payer MEDICARE ==
[~2021-10-10] VITALS: Ht 170.2 cm; Wt 96.0 kg
[2021-10-10] VITALS (12 sets, daily range): BP systolic 82–128; BP diastolic 43–92
[~2021-10-10 10:38] MED LIST changes: +GABAPENTIN400 M2 PO
--- NOTE | 2021-10-10 10:46 | NUR ---
PT TO ROOM VIA EMS
--- NOTE | 2021-10-10 11:00 | NUR ---
Reassessment of patient completed. No distress noted.
[2021-10-10 11:05] LABS: HEMATOCRIT 36.1 % (39.0-50.0); HEMOGLOBIN 12.6 g/dl (14.0-18.0); MEAN CELL VOLUME 90.5 fL CALC (80.0-100.0); MEAN CORPUSCULAR HGB 31.6 pG CALC (26.0-32.0); MEAN CORPUSCULAR HGB CONC 34.9 g/dL CAL (32.0-36.0); NEUT# 2.96 thou/uL (1.82-7.42); RED BLOOD COUNT 3.99 mill/uL (4.70-6.10); RED CELL DISTRI WIDTH 11.6 % (11.5-15.5)
[2021-10-10 11:06] LABS: GFR FOR AFR.AMER. > 60 ML/MIN (>=60 (CALC)); GFR OTHER RACES > 60 ML/MIN (>=60 (CALC))
[2021-10-10 11:20] LABS: ALBUMIN 3.5 g/dL (3.2-5.0); ALKALINE PHOSPHATASE 109 u/l (38-126); ANION GAP 12 (6-22 (CALC)); BILIRUBIN, TOTAL 0.4 mg/dL (0.0-1.4); BUN 12 mg/dL (9-20); BUN/CREATININE RATIO 17 (12-20 (CALC)); CARBON DIOXIDE 22 mmol/l (22-30); CHLORIDE 105 mmol/l (95-108); CREATININE 0.7 mg/dL (0.7-1.3); GFR FOR AFR.AMER. > 60 ML/MIN (>=60 (CALC)); GFR OTHER RACES > 60 ML/MIN (>=60 (CALC)); POTASSIUM 4.1 mmol/l (3.5-5.1); SGOT/AST 25 u/l (17-59); SODIUM 135 mmol/l (137-146); TOTAL PROTEIN 6.6 g/dL (6.3-8.2)
--- NOTE | 2021-10-10 11:39 | NUR ---
PATIENT GIVEN BREAKFAST AND MORNING MEDS TO INCLUDE ACCUCHECK LOLY
--- NOTE | 2021-10-10 12:00 | NUR ---
Reassessment of patient completed. No distress noted.
--- NOTE | 2021-10-10 13:31 | NUR ---
PT SLEEPING COMFORTABLY NAD. VSS
--- NOTE | 2021-10-10 14:30 | NUR ---
Reassessment of patient completed. No distress noted.
[2021-10-10] MEDS ORDERED: TIZANIDINE4 MG PO (14:53)
[2021-10-10] MEDS ORDERED: MORPHINE SUL15 MG PO (14:54)
[2021-10-10] MEDS ORDERED: LANTUS SOL100 UNIT/M SC (15:03)
[2021-10-10] MEDS ORDERED: KENALOG15 GM/TUBE TOP (15:03)
[2021-10-10] MEDS ORDERED: KEPPRA750 M2 PO (15:03)
[2021-10-10 15:27] LABS: URINE BILIRUBIN - DIPSTICK NEGATIVE (NEGATIVE); URINE BLOOD DIPSTICK NEGATIVE (NEGATIVE); URINE COLOR YELLOW; URINE GLUCOSE - DIPSTICK >=1000 mg/dL (NEGATIVE); URINE KETONE NEGATIVE (NEGATIVE); URINE LEUK ESTERASE NEGATIVE (NEGATIVE); URINE PROTEIN - DIPSTICK NEGATIVE (NEG-TRACE); URINE UROBILINOGEN - DIPSTICK 0.2 E.U./dL (0.2)
[2021-10-10 15:29] LABS: URINE NITRITE - DIPSTICK NEGATIVE (Negative)
--- NOTE | 2021-10-10 15:30 | NUR ---
Reassessment of patient completed. No distress noted.
--- NOTE | 2021-10-10 16:45 | NUR ---
REPORT GIVEN TO [facility] CAR AT THIS TIME
--- NOTE | 2021-10-10 17:20 | NUR ---
GOT REPORT FROM ER. PATIENT ASSESSED. AOX3. PATIENT IS CONCERNED ABOUT HIS MEDICATION ADVISED THAT I WOULD SPEAK TO MD ABOUT HIS MEDICATION, THE MD HAD TO REVIEW THEM. ORIENTATED PATIENT TO ROOM, PHONE, CALL LIGHT, BATHROOM. EDUCATED ON FALL PRECAUTIONS.
--- NOTE | 2021-10-10 18:59 | NUR ---
REPORT RECEIVED FROM Herberth ZHOU RN.
--- NOTE | 2021-10-10 20:30 | NUR ---
PATIENT ASSMENT COMPLETED A T THIS TIME.
[2021-10-11 00:12] VITALS: BP 109/64
--- NOTE | 2021-10-11 00:45 | NUR ---
PATIENT RESTING COMFORTABLY, DENIES ANY CURRENT NEEDS AT THIS TIME. CALL LIGHT AND BEDSIDE TABLE WTIHIN REACH.
[2021-10-11 04:06] VITALS: BP 103/64
--- NOTE | 2021-10-11 04:07 | NUR ---
MATERIAL HANDLER IN TO DRAW PATIENTS MORNING LABS. -
[2021-10-11 05:34] LABS: ANION GAP 11 (6-22 (CALC)); BUN 9 mg/dL (9-20); BUN/CREATININE RATIO 12 (12-20 (CALC)); CHLORIDE 104 mmol/l (95-108); CREATININE 0.7 mg/dL (0.7-1.3); GFR FOR AFR.AMER. > 60 ML/MIN (>=60 (CALC)); GFR OTHER RACES > 60 ML/MIN (>=60 (CALC)); MAGNESIUM 1.7 mg/dL (1.6-2.3); POTASSIUM 3.9 mmol/l (3.5-5.1); SODIUM 140 mmol/l (137-146)
[2021-10-11 05:46] LABS: CARBON DIOXIDE 29 mmol/l (22-30)
[2021-10-11 06:58] VITALS: BP 123/82
--- NOTE | 2021-10-11 08:00 | NUR ---
GOT REPORT FROM [employer] IMAGING DIRECTOR NURSE. PATIENT AOX4. PATIENT C/O PAIN THAT IS CHROINIC AND WANTS HIS MEDICATION. PATIENT MRI SCREENING COMPLETED BUT PATIENT STATES THAT HE HAS TO BE PUT ASLEEP FOR THE MRI BECAUSE HE IS VERY BADLY CLAUSTROPHOBIC. PATIENT ALSO HAS A IMLANTED DEVICE AND IS NOT SURE WHICH TYPE OF DEVICE. PATIENT DOES NOT HAVE HIS DEVICE CARD WITH HIM. MRI FREDY AND MD INFORMED.
[2021-10-11 11:35] VITALS: BP 116/70
--- NOTE | 2021-10-11 14:03 | NUR ---
SPEECH PATHOLOGY-- PT PRESENTED WITH GREATLY IMPROVED SPEECH PRODUCTION AND INTELLIGIBILITY THIS DATE. LESS FACIAL DROOP NOTED ON R SIDE. PT DYSARTHRIA MOSTLY RESOLVED WITH BASELINE SPEECH ARTICULATION DEFICITS NOTED. PT TO BE D/C TODAY.
[2021-10-11 15:58] VITALS: BP 137/84
--- NOTE | 2021-10-11 17:28 | NUR ---
Discharge instructions given. Patient verbalizes understanding of same. Discharged in stable condition via Ambulatory to Home with *Other. All belongings sent with pt.
== END 2021-10-11 17:29 | disposition home or self-care (01) ==
LOC: ED 10:38 → ED-I 10:54 → MS2 12:51 → ED 12:51 → ED-I 17:00 → ED 17:00 → MS2 10-11 17:29
PROVIDERS: Family Medicine; ADMIT Internal Medicine; ATTEND Internal Medicine
DX: G40.019 Localization-related (focal) (partial) idiopathic epilepsy and epileptic syndromes with seizures of localized onset, intractable, without status epilepticus (principal); I10 Essential (primary) hypertension; E11.9 Type 2 diabetes mellitus without complications; E78.5 Hyperlipidemia, unspecified; F40.240 Claustrophobia; Z86.73 Personal history of transient ischemic attack (TIA), and cerebral infarction without residual deficits; Z79.4 Long term (current) use of insulin; Z20.822 Contact with and (suspected) exposure to COVID-19
CPT/HCPCS: Q9967

== ENCOUNTER 2022-04-22 04:06 | Emergency (ER) | payer MEDICARE ==
[~2022-04-22] VITALS: Ht 170.2 cm; Wt 81.0 kg
[2022-04-22] VITALS (12 sets, daily range): BP systolic 126–150; BP diastolic 64–86
[~2022-04-22 04:06] MED LIST changes: +KENALOG15 GM/TUBE TOP; +KEPPRA750 M2 PO; +LANTUS SOL100 UNIT/M SC; +MORPHINE SUL15 MG PO
[2022-04-22 04:55] LABS: BASO% 0.3 % (0-3); EOS% 6.2 % (0-8); HEMATOCRIT 45.1 % (39.0-50.0); HEMOGLOBIN 15.1 g/dl (14.0-18.0); IMMATURE GRANULOCYTES 0.2 % (0.0-5.0); LYMPH% 32.8 % (15-41); MEAN CELL VOLUME 90.2 fL CALC (80.0-100.0); MEAN CORPUSCULAR HGB 30.2 pG CALC (26.0-32.0); MEAN CORPUSCULAR HGB CONC 33.5 g/dL CAL (32.0-36.0); MONO% 4.6 % (2-13); NEUT# 5.03 thou/uL (1.82-7.42); NEUT% 55.9 % (42-76); RED CELL DISTRI WIDTH 12.2 % (11.5-15.5)
[2022-04-22 05:07] LABS: ALBUMIN 4.8 g/dL (3.2-5.0); ALKALINE PHOSPHATASE 74 u/l (38-126); ANION GAP 11 (6-22 (CALC)); BUN 15 mg/dL (9-20); BUN/CREATININE RATIO 15 (12-20 (CALC)); CARBON DIOXIDE 29 mmol/l (22-30); CHLORIDE 104 mmol/l (95-108); GFR FOR AFR.AMER. > 60 ML/MIN (>=60 (CALC)); GFR OTHER RACES > 60 ML/MIN (>=60 (CALC)); LIPASE 41 u/l (23-300); POTASSIUM 3.8 mmol/l (3.5-5.1); SGOT/AST 29 u/l (17-59); SODIUM 141 mmol/l (137-146); TOTAL PROTEIN 8.8 g/dL (6.3-8.2)
[2022-04-22 05:12] LABS: BILIRUBIN, TOTAL 1.3 mg/dL (0.2-1.3)
[2022-04-22 05:43] LABS: URINE BILIRUBIN - DIPSTICK NEGATIVE (NEGATIVE); URINE BLOOD DIPSTICK NEGATIVE (NEGATIVE); URINE COLOR YELLOW; URINE GLUCOSE - DIPSTICK NEGATIVE (NEGATIVE); URINE KETONE NEGATIVE (NEGATIVE); URINE LEUK ESTERASE NEGATIVE (NEGATIVE); URINE PH 6.5 (4.5-8.0); URINE PROTEIN - DIPSTICK NEGATIVE (NEG-TRACE); URINE UROBILINOGEN - DIPSTICK 0.2 E.U./dL (0.2)
[2022-04-22 05:53] LABS: URINE NITRITE - DIPSTICK NEGATIVE (Negative)
== END 2022-04-22 07:45 | disposition home or self-care (01) ==
LOC: ED 04:06
PROVIDERS: Family Medicine
DX: R10.9 Unspecified abdominal pain (principal); I10 Essential (primary) hypertension; E11.9 Type 2 diabetes mellitus without complications; E78.5 Hyperlipidemia, unspecified; Z86.73 Personal history of transient ischemic attack (TIA), and cerebral infarction without residual deficits; Z79.4 Long term (current) use of insulin

== ENCOUNTER 2022-10-14 17:53 | Emergency (ER) | payer MEDICARE ==
[~2022-10-14] VITALS: Ht 170.2 cm; Wt 82.8 kg
[~2022-10-14 17:53] MED LIST changes: +BAYER ASPIRIN E81 MG PO; +KAPSPARGO SPRIN25 MG PO; +LAMICTAL100 M1 PO; +LAMOTRIGINE100 MG PO; +MONTELUKAST SOD10 MG PO; +OMEPRAZOLE DR40 MG PO; +OXYCODONE20 M1 PO; +TRAZODONE100 MG PO
[2022-10-14] MEDS ORDERED: VIBRAMYCIN100 M2 PO (19:45)
[2022-10-14 20:05] VITALS: BP 108/69
== END 2022-10-14 20:05 | disposition home or self-care (01) ==
LOC: ED 17:53
DX: L03.113 Cellulitis of right upper limb (principal); I10 Essential (primary) hypertension; E11.9 Type 2 diabetes mellitus without complications; E78.5 Hyperlipidemia, unspecified; Z86.73 Personal history of transient ischemic attack (TIA), and cerebral infarction without residual deficits; Z79.4 Long term (current) use of insulin; Z86.14 Personal history of Methicillin resistant Staphylococcus aureus infection

== ENCOUNTER 2022-11-05 19:05 | Emergency (ER) | payer MEDICARE ==
[~2022-11-05] VITALS: Ht 170.2 cm; Wt 80.0 kg
[~2022-11-05 19:05] MED LIST changes: +VIBRAMYCIN100 M2 PO
[2022-11-05 19:19] VITALS: BP 127/74
[2022-11-05 19:31] VITALS: BP 104/48
[2022-11-05 19:32] VITALS: BP 98/65
[2022-11-05 20:00] VITALS: BP 99/48
[2022-11-05] MEDS ORDERED: METHOCARBAMOL500 MG PO ×2 (20:11→20:25)
[2022-11-05] MEDS ORDERED: NAPROXEN500 MG PO ×2 (20:11→20:25)
[2022-11-05 20:15] VITALS: BP 105/64
[2022-11-05 20:25] VITALS: BP 105/64
== END 2022-11-05 20:25 | disposition home or self-care (01) ==
LOC: ED 19:05
DX: S20.212A Contusion of left front wall of thorax, initial encounter (principal); M25.562 Pain in left knee; E11.9 Type 2 diabetes mellitus without complications; I10 Essential (primary) hypertension; E78.5 Hyperlipidemia, unspecified; J45.909 Unspecified asthma, uncomplicated; W01.0XXA Fall on same level from slipping, tripping and stumbling without subsequent striking against object, initial encounter; Y92.009 Unspecified place in unspecified non-institutional (private) residence as the place of occurrence of the external cause; Z91.81 History of falling; Z79.4 Long term (current) use of insulin; Z86.73 Personal history of transient ischemic attack (TIA), and cerebral infarction without residual deficits

== ENCOUNTER 2022-11-07 19:38 | Emergency (ER) | payer MEDICARE ==
[~2022-11-07] VITALS: Ht 170.2 cm; Wt 85.2 kg
[~2022-11-07 19:38] MED LIST changes: +METHOCARBAMOL500 MG PO; +NAPROXEN500 MG PO
[2022-11-07 19:44] VITALS: BP 163/130
[2022-11-07 19:46] VITALS: BP 122/69
[2022-11-07 20:00] VITALS: BP 105/61
[2022-11-07 20:05] LABS: BASO% 0.5 % (0-3); EOS% 4.5 % (0-8); HEMATOCRIT 41.3 % (39.0-50.0); HEMOGLOBIN 13.7 g/dl (14.0-18.0); IMMATURE GRANULOCYTES 0.5 % (0.0-5.0); MEAN CELL VOLUME 92.4 fL CALC (80.0-100.0); MEAN CORPUSCULAR HGB 30.6 pG CALC (26.0-32.0); MEAN CORPUSCULAR HGB CONC 33.2 g/dL CAL (32.0-36.0); MONO% 3.7 % (2-13); NEUT# 5.49 thou/uL (1.82-7.42); NEUT% 69.8 % (42-76); RED BLOOD COUNT 4.47 mill/uL (4.70-6.10)
[2022-11-07 20:12] LABS: URINE BILIRUBIN - DIPSTICK Negative (NEGATIVE); URINE BLOOD DIPSTICK Negative (NEGATIVE); URINE GLUCOSE - DIPSTICK Negative (NEGATIVE); URINE KETONE Negative (NEGATIVE); URINE LEUK ESTERASE Negative (NEGATIVE); URINE NITRITE - DIPSTICK Negative (Negative); URINE PH 8.5 (4.5-8.0); URINE PROTEIN - DIPSTICK 30 mg/dL (NEG-TRACE); URINE SPECIFIC GRAVITY 1.015
[2022-11-07 20:13] LABS: URINE COLOR Yellow; URINE RBC 0-2 RBC/hpf (0-5); URINE WBC 0-2 WBC/hpf (0-5)
[2022-11-07 20:30] LABS: ALBUMIN 4.1 g/dL (3.2-5.0); ALKALINE PHOSPHATASE 77 u/l (38-126); ANION GAP 13 (6-22 (CALC)); BILIRUBIN, TOTAL 0.9 mg/dL (0.2-1.3); BUN 15 mg/dL (9-20); BUN/CREATININE RATIO 14 (12-20 (CALC)); CARBON DIOXIDE 31 mmol/l (22-30); CHLORIDE 99 mmol/l (95-108); CREATININE 1.1 mg/dL (0.7-1.3); GFR FOR AFR.AMER. > 60 ML/MIN (>=60 (CALC)); GFR OTHER RACES > 60 ML/MIN (>=60 (CALC)); POTASSIUM 3.9 mmol/l (3.5-5.1); SGOT/AST 33 u/l (17-59); SODIUM 140 mmol/l (137-146)
[2022-11-07] MEDS ORDERED: NAPROXEN500 MG PO (21:25)
[2022-11-07 21:28] VITALS: BP 105/61
[2022-11-08] MEDS ORDERED: TRAZODONE100 MG PO (16:46)
[2022-11-08] MEDS ORDERED: B121000 MC1 (16:47)
[2022-11-08] MEDS ORDERED: ZOFRAN4 MG/TAB PO (16:47)
[2022-11-08] MEDS ORDERED: OMEPRAZOLE DR40 MG PO (16:47)
[2022-11-08] MEDS ORDERED: LAMICTAL100 M1 PO (17:47)
[2022-11-08] MEDS ORDERED: LOPRESSOR25 M1 PO (17:47)
== END 2022-11-07 21:38 | disposition home or self-care (01) ==
LOC: ED 19:38
PROVIDERS: Emergency Medicine
DX: S09.90XA Unspecified injury of head, initial encounter (principal); I10 Essential (primary) hypertension; E11.9 Type 2 diabetes mellitus without complications; E78.5 Hyperlipidemia, unspecified; J45.909 Unspecified asthma, uncomplicated; W01.0XXA Fall on same level from slipping, tripping and stumbling without subsequent striking against object, initial encounter; Y92.008 Other place in unspecified non-institutional (private) residence as the place of occurrence of the external cause; Z79.4 Long term (current) use of insulin; Z86.73 Personal history of transient ischemic attack (TIA), and cerebral infarction without residual deficits

== ENCOUNTER 2022-11-08 15:29 | Observation (INO) | payer OTHER, MEDICARE ==
[~2022-11-08] VITALS: Ht 170.2 cm; Wt 84.0 kg
[2022-11-08] VITALS (14 sets, daily range): BP systolic 94–154; BP diastolic 41–84
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
[2022-11-08 16:02] LABS: GFR FOR AFR.AMER. > 60 ML/MIN (>=60 (CALC)); GFR OTHER RACES > 60 ML/MIN (>=60 (CALC))
[2022-11-08 16:05] LABS: BASO% 0.5 % (0-3); EOS% 3.6 % (0-8); IMMATURE GRANULOCYTES 0.8 % (0.0-5.0); LYMPH% 15.1 % (15-41); MEAN CELL VOLUME 90.8 fL CALC (80.0-100.0); MEAN CORPUSCULAR HGB CONC 34.1 g/dL CAL (32.0-36.0); MONO% 4.4 % (2-13); NEUT# 4.59 thou/uL (1.82-7.42); NEUT% 75.6 % (42-76); RED BLOOD COUNT 3.71 mill/uL (4.70-6.10); RED CELL DISTRI WIDTH 11.9 % (11.5-15.5)
[2022-11-08 16:10] LABS: HEMATOCRIT 33.7 % (39.0-50.0); HEMOGLOBIN 11.5 g/dl (14.0-18.0)
[2022-11-08 16:25] LABS: ALBUMIN 3.3 g/dL (3.2-5.0); ALKALINE PHOSPHATASE 67 u/l (38-126); ANION GAP 10 (6-22 (CALC)); BILIRUBIN, TOTAL 0.7 mg/dL (0.2-1.3); BUN 16 mg/dL (9-20); BUN/CREATININE RATIO 17 (12-20 (CALC)); CARBON DIOXIDE 26 mmol/l (22-30); CHLORIDE 103 mmol/l (95-108); CREATININE 0.9 mg/dL (0.7-1.3); ETHYL ALCOHOL 0 mg/dl (0-30); GFR FOR AFR.AMER. > 60 ML/MIN (>=60 (CALC)); GFR OTHER RACES > 60 ML/MIN (>=60 (CALC)); POTASSIUM 3.6 mmol/l (3.5-5.1); SGOT/AST 28 u/l (17-59); SODIUM 135 mmol/l (137-146); TOTAL PROTEIN 6.4 g/dL (6.3-8.2)
--- NOTE | 2022-11-08 16:30 | NUR ---
PT HAS COMPLAINTS OF NECK BRACE BOTHERING HIM, EDCUATED TO LEAVE ON. PT IS COMPLIANT OF NOW.
[2022-11-08] MEDS ORDERED: TRAZODONE100 MG PO (16:46)
[2022-11-08] MEDS ORDERED: OMEPRAZOLE DR40 MG PO (16:47)
[2022-11-08] MEDS ORDERED: ZOFRAN4 MG/TAB PO (16:47)
[2022-11-08] MEDS ORDERED: B121000 MC1 (16:47)
[2022-11-08] MEDS ORDERED: LOPRESSOR25 M1 PO (17:47)
[2022-11-08] MEDS ORDERED: LAMICTAL100 M1 PO (17:47)
--- NOTE | 2022-11-08 18:05 | NUR ---
PT NEEDS HAVE BEEN ADDRESSED. PT HAS CALL LIGHT NEAR
--- NOTE | 2022-11-08 18:15 | NUR ---
MD ALLOWED REMOVAL OF C-COLLAR
--- NOTE | 2022-11-08 18:20 | NUR ---
CMS+ AND INTACT AFTER COLLAR REMOVAL. PT IS ALERT AND OX4 SITTING UP IN BED. CALL LIGHT IN LAP AND BOTH BED RAILS UP AND THE CURTAIN OPEN
--- NOTE | 2022-11-08 18:40 | NUR ---
pt jumped out of bed and landed on the floor RN WAS WALKING BY THE PATIENTS ROOM. NO LOC. . MOR AT BEDSIDE. HELPED PATIENT TO THE BED AND THEN ASSESED HIM. NO OBVIOUS INJURIES BUT PATIENT C/O PAIN IN HIS HEAD AND BACK.PT WILL HAVE ANOTHER CT HEAD. PT REMAINS ALERT AND OX4.
[2022-11-08 18:46] LABS: URINE BILIRUBIN - DIPSTICK Negative (NEGATIVE); URINE BLOOD DIPSTICK Negative (NEGATIVE); URINE GLUCOSE - DIPSTICK 100 mg/dL (NEGATIVE); URINE KETONE Negative (NEGATIVE); URINE LEUK ESTERASE Negative (NEGATIVE); URINE NITRITE - DIPSTICK Negative (Negative); URINE PH 7.5 (4.5-8.0); URINE PROTEIN - DIPSTICK Negative (NEG-TRACE); URINE SPECIFIC GRAVITY 1.015
[2022-11-08 18:47] LABS: URINE COLOR Yellow
--- NOTE | 2022-11-08 19:00 | NUR ---
PT WANTS HIS PAIN MEDICINE OR HES LEAVING.
--- NOTE | 2022-11-08 19:03 | NUR ---
ASSUMED CARE OF PT, PT WITH HOB ELEVATED, NO ACUTE DISTRESS NOTED. REQUESTING PAIN MEDICATION AT THIS TIME FOR PAIN ALL OVER. DR OREILLY AWARE.
--- NOTE | 2022-11-08 19:25 | NUR ---
MEDICATED WITTH MORPHINE 2MG IVP PER MD ORDER. PT VOICES APPRECIATION.
--- NOTE | 2022-11-08 19:25 | NUR ---
ATTEMPTED TO CALL REPORT. NURSE WILL CALL BACK.
--- NOTE | 2022-11-08 19:48 | NUR ---
REPORT CALLED TO MED SURG. DR LEARY CONTACTED FOR ADMISSION MED ORDERS.
--- NOTE | 2022-11-08 21:13 | NUR ---
patient blood sugar is 110 nurse aware
[2022-11-09 04:02] VITALS: BP 116/62
[2022-11-09 05:52] VITALS: BP 116/62
--- NOTE | 2022-11-09 06:30 | NUR ---
patient glucose level was 67. nurse notified.
[2022-11-09 07:11] VITALS: BP 109/71
--- NOTE | 2022-11-09 08:00 | NUR ---
GOT REPORT FROM MERCHANDISE EXECUTION LEADER. PATIENT ASSESS. AOX3. DENIES ANY COMPLAINTS BESIDES THE CHRONIC PAIN. PATIENT HAS CALL LIGHT AND BEDSIDE TABLE WITH IN REACH. ADVISED TO CALL IF NEEDING ANYTHING.
[2022-11-09 09:39] LABS: HEMATOCRIT 37.8 % (39.0-50.0); HEMOGLOBIN 12.1 g/dl (14.0-18.0); MEAN CELL VOLUME 95.7 fL CALC (80.0-100.0); MEAN CORPUSCULAR HGB 30.6 pG CALC (26.0-32.0); RED BLOOD COUNT 3.95 mill/uL (4.70-6.10); RED CELL DISTRI WIDTH 12.5 % (11.5-15.5)
[2022-11-09 09:48] LABS: ALBUMIN 3.3 g/dL (3.2-5.0); ALKALINE PHOSPHATASE 60 u/l (38-126); ANION GAP 12 (6-22 (CALC)); BILIRUBIN, TOTAL 0.9 mg/dL (0.2-1.3); BUN 12 mg/dL (9-20); BUN/CREATININE RATIO 13 (12-20 (CALC)); CARBON DIOXIDE 24 mmol/l (22-30); CHLORIDE 106 mmol/l (95-108); CREATININE 0.9 mg/dL (0.7-1.3); GFR FOR AFR.AMER. > 60 ML/MIN (>=60 (CALC)); GFR OTHER RACES > 60 ML/MIN (>=60 (CALC)); POTASSIUM 3.4 mmol/l (3.5-5.1); SGOT/AST 28 u/l (17-59); SODIUM 138 mmol/l (137-146); TOTAL PROTEIN 6.3 g/dL (6.3-8.2)
[2022-11-09 10:47] VITALS: BP 139/78
[2022-11-09 15:07] VITALS: BP 126/79
[2022-11-09] MEDS ORDERED: [UNRECOGNIZED DRUG - OTHER] TD (17:49)
--- NOTE | 2022-11-09 18:35 | NUR ---
Discharge instructions given. Patient verbalizes understanding of same. Discharged in stable condition via Ambulatory to Home with family. All belongings sent with pt.
== END 2022-11-09 18:00 | disposition home or self-care (01) | DRG 312 ==
LOC: ED 15:29 → ED-I 16:30 → ED 18:02 → MS2 18:03
PROVIDERS: Family Medicine; ADMIT Student in an Organized Health Care Education/Training Program; ATTEND Student in an Organized Health Care Education/Training Program
DX: R55 Syncope and collapse (principal); R56.9 Unspecified convulsions; R53.1 Weakness; I10 Essential (primary) hypertension; E11.9 Type 2 diabetes mellitus without complications; E78.5 Hyperlipidemia, unspecified; M54.2 Cervicalgia; M54.50 Low back pain, unspecified; R07.81 Pleurodynia; E87.6 Hypokalemia; M25.562 Pain in left knee; S09.90XA Unspecified injury of head, initial encounter; W06.XXXA Fall from bed, initial encounter; Y92.230 Patient room in hospital as the place of occurrence of the external cause; V47.0XXA Car driver injured in collision with fixed or stationary object in nontraffic accident, initial encounter; Z79.899 Other long term (current) drug therapy; Z79.4 Long term (current) use of insulin; Z86.73 Personal history of transient ischemic attack (TIA), and cerebral infarction without residual deficits
CPT/HCPCS: J1650; Q9967

== ENCOUNTER 2022-11-16 10:27 | Inpatient (IN) | payer MEDICARE ==
[~2022-11-16] VITALS: Ht 170.2 cm; Wt 84.4 kg
[2022-11-16] VITALS (25 sets, daily range): BP systolic 106–180; BP diastolic 68–140
[~2022-11-16 10:27] MED LIST changes: +B121000 MC1; +LOPRESSOR25 M1 PO; +ZOFRAN4 MG/TAB PO; +[UNRECOGNIZED DRUG - OTHER] TD
[2022-11-16 10:56] LABS: BASO% 0.3 % (0-3); HEMATOCRIT 40.9 % (39.0-50.0); HEMOGLOBIN 13.9 g/dl (14.0-18.0); IMMATURE GRANULOCYTES 0.6 % (0.0-5.0); MEAN CELL VOLUME 91.1 fL CALC (80.0-100.0); NEUT# 8.61 thou/uL (1.82-7.42); NEUT% 82.1 % (42-76); RED BLOOD COUNT 4.49 mill/uL (4.70-6.10); RED CELL DISTRI WIDTH 12.4 % (11.5-15.5)
[2022-11-16 11:18] LABS: ALBUMIN 3.9 g/dL (3.2-5.0); ANION GAP 13 (6-22 (CALC)); BILIRUBIN, TOTAL 0.6 mg/dL (0.2-1.3); BUN 17 mg/dL (9-20); BUN/CREATININE RATIO 19 (12-20 (CALC)); CARBON DIOXIDE 25 mmol/l (22-30); CHLORIDE 107 mmol/l (95-108); CREATININE 0.9 mg/dL (0.7-1.3); GFR FOR AFR.AMER. > 60 ML/MIN (>=60 (CALC)); GFR OTHER RACES > 60 ML/MIN (>=60 (CALC)); MAGNESIUM 1.9 mg/dL (1.6-2.3); POTASSIUM 3.9 mmol/l (3.5-5.1); SGOT/AST 21 u/l (17-59); SODIUM 141 mmol/l (137-146); TOTAL PROTEIN 7.3 g/dL (6.3-8.2)
[2022-11-16 11:19] LABS: ALKALINE PHOSPHATASE 117 u/l (38-126)
== END 2022-11-16 19:30 | disposition left against medical advice (07) | DRG 918 ==
LOC: ED 10:27 → ICU 11:04
PROVIDERS: Family Medicine; ADMIT Student in an Organized Health Care Education/Training Program; ATTEND Student in an Organized Health Care Education/Training Program
DX: T38.3X1A Poisoning by insulin and oral hypoglycemic [antidiabetic] drugs, accidental (unintentional), initial encounter (principal); E11.9 Type 2 diabetes mellitus without complications; I10 Essential (primary) hypertension; Z86.73 Personal history of transient ischemic attack (TIA), and cerebral infarction without residual deficits; Z79.4 Long term (current) use of insulin; Z91.51 Personal history of suicidal behavior
CPT/HCPCS: J2354

== ENCOUNTER 2022-11-19 21:11 | Emergency (ER) | payer MEDICARE ==
[~2022-11-19] VITALS: Ht 170.2 cm; Wt 80.0 kg
[2022-11-19] VITALS (8 sets, daily range): BP systolic 117–160; BP diastolic 56–122
[2022-11-19 22:18] LABS: HEMATOCRIT 35.8 % (39.0-50.0); HEMOGLOBIN 12.4 g/dl (14.0-18.0); IMMATURE GRANULOCYTES 1.6 % (0.0-5.0); LYMPH% 7.3 % (15-41); MEAN CELL VOLUME 90.6 fL CALC (80.0-100.0); MEAN CORPUSCULAR HGB 31.4 pG CALC (26.0-32.0); MEAN CORPUSCULAR HGB CONC 34.6 g/dL CAL (32.0-36.0); MONO% 4.8 % (2-13); NEUT# 9.54 thou/uL (1.82-7.42); NEUT% 86.3 % (42-76); RED BLOOD COUNT 3.95 mill/uL (4.70-6.10); RED CELL DISTRI WIDTH 12.5 % (11.5-15.5)
[2022-11-19 22:28] LABS: ALBUMIN 3.5 g/dL (3.2-5.0); ALKALINE PHOSPHATASE 126 u/l (38-126); ANION GAP 13 (6-22 (CALC)); BILIRUBIN, TOTAL 0.6 mg/dL (0.2-1.3); BUN 20 mg/dL (9-20); BUN/CREATININE RATIO 22 (12-20 (CALC)); CARBON DIOXIDE 23 mmol/l (22-30); CHLORIDE 102 mmol/l (95-108); CREATININE 0.9 mg/dL (0.7-1.3); GFR FOR AFR.AMER. > 60 ML/MIN (>=60 (CALC)); GFR OTHER RACES > 60 ML/MIN (>=60 (CALC)); POTASSIUM 3.4 mmol/l (3.5-5.1); SODIUM 134 mmol/l (137-146); TOTAL PROTEIN 6.4 g/dL (6.3-8.2)
[2022-11-19 22:35] LABS: SGOT/AST 38 u/l (17-59)
[2022-11-20 00:01] VITALS: BP 155/92
[2022-11-20 01:26] VITALS: BP 155/92
== END 2022-11-20 01:44 | disposition home or self-care (01) ==
LOC: ED 21:11
PROVIDERS: Emergency Medicine
DX: E11.65 Type 2 diabetes mellitus with hyperglycemia (principal); I10 Essential (primary) hypertension; E78.5 Hyperlipidemia, unspecified; J45.909 Unspecified asthma, uncomplicated; Z79.4 Long term (current) use of insulin; Z86.73 Personal history of transient ischemic attack (TIA), and cerebral infarction without residual deficits

== ENCOUNTER 2022-11-23 21:17 | Emergency (ER) | payer MEDICARE ==
[~2022-11-23] VITALS: Ht 170.2 cm; Wt 90.0 kg
[2022-11-23 21:24] VITALS: BP 165/94
[2022-11-23 21:30] VITALS: BP 159/88
[2022-11-23 21:46] VITALS: BP 128/91
[2022-11-23 22:00] VITALS: BP 147/72
[2022-11-23 22:15] VITALS: BP 132/76
[2022-11-23] MEDS ORDERED: AMOXICILLIN500 MG PO ×2 (22:18→22:50)
[2022-11-23] MEDS ORDERED: ULTRAM50 MG PO ×2 (22:18→22:50)
[2022-11-23 22:22] VITALS: BP 132/76
== END 2022-11-23 23:00 | disposition home or self-care (01) ==
LOC: ED 21:17
PROC: 0HQEXZZ Repair Left Lower Arm Skin, External Approach (ICD-10-PCS; principal; 2022-11-23)
DX: S61.512A Laceration without foreign body of left wrist, initial encounter (principal); I10 Essential (primary) hypertension; E11.9 Type 2 diabetes mellitus without complications; J45.909 Unspecified asthma, uncomplicated; W26.0XXA Contact with knife, initial encounter; Y93.G3 Activity, cooking and baking; Y92.000 Kitchen of unspecified non-institutional (private) residence as the place of occurrence of the external cause; Z79.4 Long term (current) use of insulin; Z86.73 Personal history of transient ischemic attack (TIA), and cerebral infarction without residual deficits
CPT/HCPCS: J2060

== ENCOUNTER 2023-04-28 01:09 | Emergency (ER) | payer MEDICARE ==
[~2023-04-28] VITALS: Ht 170.2 cm; Wt 79.0 kg
[~2023-04-28 01:09] MED LIST changes: +ULTRAM50 MG PO
[2023-04-28 01:14] VITALS: BP 144/78
[2023-04-28] MEDS ORDERED: lamoTRIgine 100 MG/TAB PO ONE (01:25)
[2023-04-28 01:31] VITALS: BP 87/57
[2023-04-28] MEDS ORDERED: [UNRECOGNIZED DRUG - REMARK] (02:05)
[2023-04-28 02:25] LABS: BASO% 0.6 % (0-3); EOS% 9.1 % (0-8); HEMATOCRIT 35.7 % (39.0-50.0); HEMOGLOBIN 11.7 g/dl (14.0-18.0); IMMATURE GRANULOCYTES 0.4 % (0.0-5.0); LYMPH% 23.8 % (15-41); MEAN CELL VOLUME 90.6 fL CALC (80.0-100.0); MEAN CORPUSCULAR HGB 29.7 pG CALC (26.0-32.0); MEAN CORPUSCULAR HGB CONC 32.8 g/dL CAL (32.0-36.0); MONO% 8.6 % (2-13); NEUT# 2.66 thou/uL (1.82-7.42); NEUT% 57.5 % (42-76); RED BLOOD COUNT 3.94 mill/uL (4.70-6.10); RED CELL DISTRI WIDTH 12.1 % (11.5-15.5)
[2023-04-28 02:31] VITALS: BP 164/145
[2023-04-28 02:38] LABS: ALBUMIN 3.7 g/dL (3.2-5.0); ALKALINE PHOSPHATASE 69 u/l (38-126); ANION GAP 6 (6-22 (CALC)); BILIRUBIN, TOTAL 0.5 mg/dL (0.2-1.3); BUN 14 mg/dL (8-23); BUN/CREATININE RATIO 15 (12-20 (CALC)); CHLORIDE 103 mmol/l (95-108); ETHYL ALCOHOL 0 mg/dl (0-30); GFR FOR AFR.AMER. > 60 ML/MIN (>=60 (CALC)); GFR OTHER RACES > 60 ML/MIN (>=60 (CALC)); POTASSIUM 4.7 mmol/l (3.5-5.1); SGOT/AST 45 u/l (19-48); SODIUM 138 mmol/l (137-146); TOTAL PROTEIN 6.6 g/dL (6.3-8.2)
[2023-04-28 02:44] LABS: CARBON DIOXIDE 34 mmol/l (22-30)
[2023-04-28 03:01] VITALS: BP 98/66
[2023-04-28 03:30] VITALS: BP 108/58
[2023-04-28] MEDS ORDERED: KETOROLAC TROMETHAMINE 30 MG/ML SDV IV ONE (03:45)
[2023-04-28] MEDS ORDERED: LACTATED RINGER'S 1,000 ML IV ONE (03:45)
[2023-04-28] MEDS ORDERED: Acetaminophen 300 MG/Codeine 30 MG/COMBO PO ONE (03:45)
[2023-04-28 04:00] VITALS: BP 112/63
[2023-04-28] MEDS ORDERED: LAMOTRIGINE200 MG PO (05:31)
== END 2023-04-28 06:19 | disposition home or self-care (01) ==
LOC: ED 01:09
PROVIDERS: Family Medicine
DX: G40.409 Other generalized epilepsy and epileptic syndromes, not intractable, without status epilepticus (principal); I10 Essential (primary) hypertension; E11.9 Type 2 diabetes mellitus without complications; E78.5 Hyperlipidemia, unspecified; Z86.73 Personal history of transient ischemic attack (TIA), and cerebral infarction without residual deficits; Z79.4 Long term (current) use of insulin

== ENCOUNTER 2023-09-29 18:56 | Inpatient (IN) | payer MEDICARE ==
[2023-09-29] VITALS (29 sets, daily range): BP systolic 76–161; BP diastolic 41–107
[~2023-09-29] VITALS: Ht 177.8 cm; Wt 88.1 kg
[~2023-09-29 18:56] MED LIST changes: +LAMOTRIGINE200 MG PO; +MOUNJARO5 MG SC; +TYLENOL # 31 TA1 PO
[2023-09-29] MEDS ORDERED: PROPOFOL 100 ML IV ONE ×2 (19:01→21:18)
[2023-09-29] MEDS ORDERED: ROCURONIUM BROMIDE 10 MG/ML 5ML VIAL IV ONE (19:05)
[2023-09-29] MEDS ORDERED: SODIUM CHLORIDE 0.9% 1,000 ML IV ONE ×4 (19:10→21:40)
[2023-09-29 19:36] LABS: BASO% 0.9 % (0-3); EOS% 2.5 % (0-8); IMMATURE GRANULOCYTES 0.1 % (0.0-5.0); LYMPH% 29.1 % (15-41); MEAN CELL VOLUME 90.2 fL CALC (80.0-100.0); MEAN CORPUSCULAR HGB 31.1 pG CALC (26.0-32.0); MEAN CORPUSCULAR HGB CONC 34.4 g/dL CAL (32.0-36.0); MONO% 7.5 % (2-13); NEUT# 4.87 thou/uL (1.82-7.42); NEUT% 59.9 % (42-76); RED BLOOD COUNT 4.99 mill/uL (4.70-6.10); RED CELL DISTRI WIDTH 11.8 % (11.5-15.5)
[2023-09-29 19:37] LABS: HEMOGLOBIN 15.5 g/dl (14.0-18.0)
[2023-09-29 19:54] LABS: ALBUMIN 4.8 g/dL (3.2-5.0); ALKALINE PHOSPHATASE 58 u/l (38-126); ANION GAP 16 (6-22 (CALC)); BILIRUBIN, TOTAL 1.6 mg/dL (0.2-1.3); BUN 13 mg/dL (8-23); BUN/CREATININE RATIO 10 (12-20 (CALC)); CARBON DIOXIDE 20 mmol/l (22-30); CHLORIDE 108 mmol/l (95-108); CREATININE 1.3 mg/dL (0.7-1.3); ESTIMATED GFR 63 ML/MIN (>=90 (CALC)); ETHYL ALCOHOL 0 mg/dl (0-30); POTASSIUM 3.9 mmol/l (3.5-5.1); SGOT/AST 62 u/l (19-48); SODIUM 139 mmol/l (137-146); TOTAL PROTEIN 8.7 g/dL (6.3-8.2)
[2023-09-29] MEDS ORDERED: LACTATED RINGER'S 1,000 ML IV PRN (21:35)
[2023-09-29] MEDS ORDERED: SODIUM CHLORIDE 0.9% 500 ML IV ONE (21:45)
[2023-09-29] MEDS ORDERED: PROPOFOL 100 ML IV PRN (21:45)
[2023-09-29] MEDS ORDERED: NOREPINEPHRINE BITARTRATE 4 MG in DEXTROSE 5% 250 ML IV PRN (21:45)
[2023-09-29] MEDS ORDERED: DEXTROSE 250 ML IV PRN ×2 (21:50)
[2023-09-29] MEDS ORDERED: MAGNESIUM HYDROXIDE 30 ML UDC PO PRN (21:55)
[2023-09-29] MEDS ORDERED: ACETAMINOPHEN 325 MG/TAB PO PRN (21:55)
[2023-09-29] MEDS ORDERED: SODIUM CHLORIDE 0.9% 1,000 ML IV PRN (21:55)
[2023-09-29] MEDS ORDERED: ONDANSETRON HCl 4 MG/2 ML SDV IV PRN (22:00)
[2023-09-29] MEDS ORDERED: MIDAZOLAM HCL 10 MG in SODIUM CHLORIDE 0.9% 90 ML IV PRN (22:05)
[2023-09-30] VITALS (166 sets, daily range): BP systolic 75–191; BP diastolic 39–169
[2023-09-30] MEDS ORDERED: IPRATROPIUM-Albuterol 0.5MG-2.5MG/3 ML NEB SCH (01:00)
[2023-09-30 03:00] LABS: URINE BILIRUBIN - DIPSTICK Negative (NEGATIVE); URINE BLOOD DIPSTICK Negative (NEGATIVE); URINE GLUCOSE - DIPSTICK Negative (NEGATIVE); URINE KETONE 15 mg/dL (NEGATIVE); URINE LEUK ESTERASE Negative (NEGATIVE); URINE NITRITE - DIPSTICK Negative (Negative); URINE PH 5.5 (4.5-8.0); URINE PROTEIN - DIPSTICK Negative (NEG-TRACE); URINE SPECIFIC GRAVITY >=1.030; URINE UROBILINOGEN - DIPSTICK 0.2 E.U./dL (0.2)
[2023-09-30 03:01] LABS: URINE COLOR Yellow
[2023-09-30 05:37] LABS: BASO% 0.7 % (0-3); EOS% 4.1 % (0-8); IMMATURE GRANULOCYTES 0.5 % (0.0-5.0); LYMPH% 28.4 % (15-41); MEAN CELL VOLUME 91.8 fL CALC (80.0-100.0); MEAN CORPUSCULAR HGB 31.7 pG CALC (26.0-32.0); MEAN CORPUSCULAR HGB CONC 34.5 g/dL CAL (32.0-36.0); MONO% 7.9 % (2-13); NEUT# 4.95 thou/uL (1.82-7.42); NEUT% 58.4 % (42-76); RED BLOOD COUNT 4.04 mill/uL (4.70-6.10)
[2023-09-30 05:44] LABS: BILIRUBIN, TOTAL 1.2 mg/dL (0.2-1.3); CHOLESTEROL HDL RATIO 3.1 (<4.4 (CALC)); CREATININE 0.8 mg/dL (0.7-1.3); MAGNESIUM 1.7 mg/dL (1.6-2.3); POTASSIUM 3.8 mmol/l (3.5-5.1)
[2023-09-30 05:50] LABS: ALBUMIN 3.4 g/dL (3.2-5.0)
[2023-09-30 05:56] LABS: HEMATOCRIT 37.1 % (39.0-50.0); HEMOGLOBIN 12.8 g/dl (14.0-18.0)
[2023-09-30] MEDS ORDERED: INSULIN LISPRO 100 UNITS/ML ML SC SCH (07:00)
[2023-09-30] MEDS ORDERED: INSULIN DETEMIR 100 UNITS/ML SC SCH (09:00)
[2023-09-30] MEDS ORDERED: Pantoprazole Sodium 40 MG VIAL (Protonix) IV SCH (09:00)
[2023-09-30] MEDS ORDERED: LORazepam 2 MG/ML ONE (09:19)
[2023-09-30] MEDS ORDERED: LORazepam 2 MG/ML IV SCH (10:00)
[2023-09-30] MEDS ORDERED: HALOPERIDOL LACTATE 5 MG/ML SDV IV SCH (10:00)
[2023-09-30] MEDS ORDERED: IPRATROPIUM-Albuterol 0.5MG-2.5MG/3 ML NEB PRN (13:34)
[2023-09-30] MEDS ORDERED: LORazepam 2 MG/ML IV PRN (15:55)
[2023-09-30] MEDS ORDERED: HALOPERIDOL LACTATE 5 MG/ML SDV IV PRN (15:55)
[2023-09-30] MEDS ORDERED: lamoTRIgine 100 MG/TAB PO SCH (21:00)
[2023-09-30] MEDS ORDERED: MONTELUKAST SODIUM 10 MG/TAB PO SCH (21:00)
[2023-09-30] MEDS ORDERED: ENOXAPARIN SODIUM 40 MG/0.4 ML SYR SC SCH (21:00)
[2023-10-01] VITALS (24 sets, daily range): BP systolic 87–133; BP diastolic 45–79
[2023-10-01 05:42] LABS: BASO% 0.5 % (0-3); EOS% 6.2 % (0-8); HEMOGLOBIN 12.2 g/dl (14.0-18.0); IMMATURE GRANULOCYTES 0.1 % (0.0-5.0); LYMPH% 27.3 % (15-41); MEAN CELL VOLUME 92.8 fL CALC (80.0-100.0); MEAN CORPUSCULAR HGB 31.4 pG CALC (26.0-32.0); MEAN CORPUSCULAR HGB CONC 33.9 g/dL CAL (32.0-36.0); MONO% 5.3 % (2-13); NEUT# 5.03 thou/uL (1.82-7.42); NEUT% 60.6 % (42-76); RED BLOOD COUNT 3.88 mill/uL (4.70-6.10); RED CELL DISTRI WIDTH 11.9 % (11.5-15.5)
[2023-10-01 05:53] LABS: ALBUMIN 3.2 g/dL (3.2-5.0); BILIRUBIN, TOTAL 1.3 mg/dL (0.2-1.3); CREATININE 0.7 mg/dL (0.7-1.3); MAGNESIUM 1.7 mg/dL (1.6-2.3); POTASSIUM 3.5 mmol/l (3.5-5.1); TOTAL PROTEIN 5.8 g/dL (6.3-8.2)
[2023-10-01] MEDS ORDERED: PREGABALIN 100 MG/CAP PO SCH (09:00)
[2023-10-01] MEDS ORDERED: PANTOPRAZOLE SODIUM Sesquihydr 40 MG/TAB PO SCH (09:00)
[2023-10-01] MEDS ORDERED: POTASSIUM CHLORIDE 20 MEQ/TAB PO SCH (09:00)
[2023-10-01] MEDS ORDERED: LevETIRAcetam 500 MG/TAB PO SCH (09:00)
[2023-10-01] MEDS ORDERED: ASPIRIN 81 MG/TAB PO SCH (09:00)
[2023-10-01] MEDS ORDERED: MIDODRINE HCL 5 MG TAB PO SCH (09:00)
== END 2023-10-01 14:00 | disposition home or self-care (01) | DRG 880 ==
LOC: ED 18:56 → ED-I 19:15 → ED 19:15 → ICU 21:23 → ED 21:23 → ICU 10-01 14:00
PROVIDERS: Family Medicine; ADMIT Student in an Organized Health Care Education/Training Program; ATTEND Student in an Organized Health Care Education/Training Program
PROC: 0T9B70Z Drainage of Bladder with Drainage Device, Via Natural or Artificial Opening (ICD-10-PCS; principal; 2023-09-29)
PROC: 5A1935Z Respiratory Ventilation, Less than 24 Consecutive Hours (ICD-10-PCS; 2023-09-29)
PROC: 3E033XZ Introduction of Vasopressor into Peripheral Vein, Percutaneous Approach (ICD-10-PCS; 2023-09-29)
DX: F44.5 Conversion disorder with seizures or convulsions (principal); F33.3 Major depressive disorder, recurrent, severe with psychotic symptoms; F10.20 Alcohol dependence, uncomplicated; I10 Essential (primary) hypertension; E11.65 Type 2 diabetes mellitus with hyperglycemia; E78.5 Hyperlipidemia, unspecified; F41.9 Anxiety disorder, unspecified; Y90.0 Blood alcohol level of less than 20 mg/100 ml; Z86.73 Personal history of transient ischemic attack (TIA), and cerebral infarction without residual deficits; Z79.4 Long term (current) use of insulin; Z20.822 Contact with and (suspected) exposure to COVID-19
CPT/HCPCS: J1650; J1953; J2060; J2470

== ENCOUNTER 2023-11-27 16:52 | Inpatient (IN) | payer MEDICARE ==
[2023-11-27] VITALS (149 sets, daily range): BP systolic 52–203; BP diastolic 32–162
[~2023-11-27] VITALS: Ht 177.8 cm; Wt 82.9 kg
[2023-11-27] MEDS ORDERED: SODIUM CHLORIDE 0.9% 1,000 ML IV ONE ×4 (17:00→17:45)
[2023-11-27] MEDS ORDERED: ROCURONIUM BROMIDE 10 MG/ML 5ML VIAL IV ONE (17:00)
[2023-11-27] MEDS ORDERED: cefTRIAXone SODIUM 2 GM in SODIUM CHLORIDE 0.9% 100 ML IV ONE (17:00)
[2023-11-27] MEDS ORDERED: MIDAZOLAM HCL 2 MG/2 ML VIAL ONE (17:00)
[2023-11-27] MEDS ORDERED: VANCOMYCIN HCL 1 GM in SODIUM CHLORIDE 0.9% 250 ML IV ONE (17:00)
[2023-11-27] MEDS ORDERED: ETOMIDATE 20 MG/10 ML SDV IV ONE (17:00)
[2023-11-27] MEDS ORDERED: MIDAZOLAM HCL 2 MG/2 ML VIAL IV ONE (17:00)
[2023-11-27] MEDS ORDERED: KETAMINE HCL 50 MG/ML 10 ML VIAL ONE (17:08)
[2023-11-27 17:13] LABS: BASO% 0.7 % (0-3); EOS% 1.9 % (0-8); HEMATOCRIT 41.7 % (39.0-50.0); IMMATURE GRANULOCYTES 0.1 % (0.0-5.0); LYMPH% 33.1 % (15-41); MEAN CELL VOLUME 89.3 fL CALC (80.0-100.0); MEAN CORPUSCULAR HGB 30.6 pG CALC (26.0-32.0); MEAN CORPUSCULAR HGB CONC 34.3 g/dL CAL (32.0-36.0); MONO% 7.4 % (2-13); NEUT# 3.85 thou/uL (1.82-7.42); NEUT% 56.8 % (42-76); RED BLOOD COUNT 4.67 mill/uL (4.70-6.10); RED CELL DISTRI WIDTH 12.8 % (11.5-15.5)
[2023-11-27] MEDS ORDERED: PROPOFOL 100 ML IV ONE ×2 (17:14→17:40)
[2023-11-27 17:15] LABS: HEMOGLOBIN 14.3 g/dl (14.0-18.0)
[2023-11-27 17:23] LABS: ALKALINE PHOSPHATASE 43 u/l (38-126); BILIRUBIN, TOTAL 1.3 mg/dL (0.2-1.3); BUN 12 mg/dL (8-23); BUN/CREATININE RATIO 12 (12-20 (CALC)); CARBON DIOXIDE 29 mmol/l (22-30); CHLORIDE 104 mmol/l (95-108); CPK 200 u/l (55-170); CREATININE 1.1 mg/dL (0.7-1.3); ESTIMATED GFR 76 ML/MIN (>=90 (CALC)); LIPASE 37 u/l (23-300); MAGNESIUM 1.9 mg/dL (1.6-2.3); SGOT/AST 37 u/l (19-48); SODIUM 140 mmol/l (137-146)
[2023-11-27 17:28] LABS: INTERNATIONAL NORMALIZED RATIO 1.1 RATIO (0.7-1.3)
[2023-11-27 17:29] LABS: ALBUMIN 4.7 g/dL (3.2-5.0); ANION GAP 12 (6-22 (CALC)); POTASSIUM 4.7 mmol/l (3.5-5.1); PROTHROMBIN TIME 10.8 SECONDS (9.0-12.5); TOTAL PROTEIN 7.8 g/dL (6.3-8.2)
[2023-11-27] MEDS ORDERED: KETAMINE HCL 50 MG/ML 10 ML VIAL IV ONE (17:35)
[2023-11-27 17:41] LABS: URINE BILIRUBIN - DIPSTICK Negative (NEGATIVE); URINE BLOOD DIPSTICK Negative (NEGATIVE); URINE GLUCOSE - DIPSTICK Negative (NEGATIVE); URINE KETONE Negative (NEGATIVE); URINE LEUK ESTERASE Negative (NEGATIVE); URINE NITRITE - DIPSTICK Negative (Negative); URINE PROTEIN - DIPSTICK Negative (NEG-TRACE); URINE SPECIFIC GRAVITY 1.015; URINE UROBILINOGEN - DIPSTICK 0.2 E.U./dL (0.2)
[2023-11-27 17:42] LABS: URINE COLOR Yellow
[2023-11-27] MEDS ORDERED: SODIUM CHLORIDE 0.9% 500 ML IV ONE (17:45)
[2023-11-27] MEDS ORDERED: NOREPINEPHRINE BITARTRATE 4 MG in DEXTROSE 5% 250 ML IV ONE (17:45)
[2023-11-27] MEDS ORDERED: LIDOcaine HCl 1% (Local Anesth.) 20 ML VIAL STI STA (18:07)
[2023-11-27] MEDS ORDERED: POVIDONE IODINE 0.5 OZ/BTL TOP ONE (18:10)
[2023-11-27] MEDS ORDERED: ACYCLOVIR SODIUM 1,000 MG VIAL IV ONE (18:35)
[2023-11-27] MEDS ORDERED: DEXAMETHASONE SOD. PHOSPHATE 10 MG/ML VIAL IV ONE (18:35)
[2023-11-27] MEDS ORDERED: ACYCLOVIR SODIUM 50 MG/ML VIAL IV SCH (19:51)
[2023-11-27] MEDS ORDERED: SODIUM CHLORIDE 0.9% IV SCH (20:05)
[2023-11-27] MEDS ORDERED: ACYCLOVIR SODIUM IV SCH (20:05)
[2023-11-27] MEDS ORDERED: SODIUM CHLORIDE 0.9% 100 ML IV ONE (20:25)
[2023-11-27] MEDS ORDERED: Pantoprazole Sodium 40 MG VIAL (Protonix) IV SCH (20:50)
[2023-11-27] MEDS ORDERED: SODIUM CHLORIDE 0.9% 1,000 ML IV PRN (20:50)
[2023-11-27] MEDS ORDERED: PROPOFOL 100 ML IV PRN (20:55)
[2023-11-27] MEDS ORDERED: LORazepam 2 MG/ML IV PRN (20:55)
[2023-11-27] MEDS ORDERED: ENOXAPARIN SODIUM 40 MG/0.4 ML SYR SC SCH (21:00)
[2023-11-28] VITALS (43 sets, daily range): BP systolic 83–136; BP diastolic 49–79
[2023-11-28] MEDS ORDERED: GABAPENTIN100 MG PO (05:00)
[2023-11-28] MEDS ORDERED: DEXTROSE 250 ML IV PRN (06:35)
[2023-11-28] MEDS ORDERED: INSULIN LISPRO 100 UNITS/ML ML SC SCH (07:00)
[2023-11-28 07:57] LABS: ALBUMIN 3.9 g/dL (3.2-5.0); BILIRUBIN, TOTAL 0.8 mg/dL (0.2-1.3); CREATININE 0.9 mg/dL (0.7-1.3); MAGNESIUM 1.9 mg/dL (1.6-2.3); POTASSIUM 4.4 mmol/l (3.5-5.1); TOTAL PROTEIN 6.7 g/dL (6.3-8.2)
[2023-11-28 08:10] LABS: BASO% 0.1 % (0-3); HEMATOCRIT 38.3 % (39.0-50.0); HEMOGLOBIN 13.2 g/dl (14.0-18.0); IMMATURE GRANULOCYTES 0.3 % (0.0-5.0); LYMPH% 15.4 % (15-41); MEAN CELL VOLUME 91.4 fL CALC (80.0-100.0); MEAN CORPUSCULAR HGB 31.5 pG CALC (26.0-32.0); MEAN CORPUSCULAR HGB CONC 34.5 g/dL CAL (32.0-36.0); MONO% 1.4 % (2-13); NEUT# 6.02 thou/uL (1.82-7.42); NEUT% 82.8 % (42-76); RED BLOOD COUNT 4.19 mill/uL (4.70-6.10)
[2023-11-28] MEDS ORDERED: ACETAMINOPHEN 325 MG/TAB PO PRN (13:20)
[2023-11-28] MEDS ORDERED: ALPRAZolam 0.5 MG/TAB PO PRN (13:50)
[2023-11-28] MEDS ORDERED: LYRICA200 MG PO (13:53)
[2023-11-28] MEDS ORDERED: PREGABALIN 100 MG/CAP PO SCH (15:00)
[2023-11-28] MEDS ORDERED: GABAPENTIN 100 MG/CAP PO SCH (15:00)
[2023-11-28] MEDS ORDERED: traZODone HCL 50 MG/TAB PO SCH (21:00)
[2023-11-28] MEDS ORDERED: METOPROLOL TARTRATE 25 MG/TAB PO SCH (21:00)
[2023-11-28] MEDS ORDERED: lamoTRIgine 100 MG/TAB PO SCH (21:00)
[2023-11-28] MEDS ORDERED: MONTELUKAST SODIUM 10 MG/TAB PO SCH (21:00)
[2023-11-29 04:36] VITALS: BP 102/61
[2023-11-29 05:14] LABS: BASO% 0.3 % (0-3); EOS% 1.1 % (0-8); HEMATOCRIT 41.2 % (39.0-50.0); HEMOGLOBIN 13.8 g/dl (14.0-18.0); IMMATURE GRANULOCYTES 0.3 % (0.0-5.0); LYMPH% 42.3 % (15-41); MEAN CORPUSCULAR HGB 31.2 pG CALC (26.0-32.0); MEAN CORPUSCULAR HGB CONC 33.5 g/dL CAL (32.0-36.0); NEUT# 3.66 thou/uL (1.82-7.42); RED BLOOD COUNT 4.43 mill/uL (4.70-6.10); RED CELL DISTRI WIDTH 13.1 % (11.5-15.5)
[2023-11-29 05:28] LABS: ALBUMIN 3.7 g/dL (3.2-5.0); BILIRUBIN, TOTAL 0.9 mg/dL (0.2-1.3); CREATININE 0.8 mg/dL (0.7-1.3); MAGNESIUM 2.1 mg/dL (1.6-2.3); TOTAL PROTEIN 6.4 g/dL (6.3-8.2)
[2023-11-29 07:29] VITALS: BP 104/64
[2023-11-29] MEDS ORDERED: PANTOPRAZOLE SODIUM Sesquihydr 40 MG/TAB PO SCH (09:00)
[2023-11-29] MEDS ORDERED: ASPIRIN 81 MG/TAB PO SCH (09:00)
[2023-11-29 10:59] VITALS: BP 125/74
[2023-11-29] MEDS ORDERED: oxyCODONE HCL 5 MG/TAB PO PRN (11:05)
[2023-11-29] MEDS ORDERED: OXYCODONE5 M1 PO (11:13)
== END 2023-11-29 12:23 | disposition home or self-care (01) | DRG 880 ==
LOC: ED 16:52 → ED-I 20:14 → ED 20:24 → ICU 20:25 → MS2 11-28 19:45
PROVIDERS: Family Medicine; Student in an Organized Health Care Education/Training Program; ADMIT Internal Medicine; ATTEND Internal Medicine
PROC: 0BH17EZ Insertion of Endotracheal Airway into Trachea, Via Natural or Artificial Opening (ICD-10-PCS; principal; 2023-11-27)
PROC: 5A1935Z Respiratory Ventilation, Less than 24 Consecutive Hours (ICD-10-PCS; 2023-11-27)
PROC: 02HV33Z Insertion of Infusion Device into Superior Vena Cava, Percutaneous Approach (ICD-10-PCS; 2023-11-27)
PROC: 009U3ZX Drainage of Spinal Canal, Percutaneous Approach, Diagnostic (ICD-10-PCS; 2023-11-27)
PROC: 0T9B70Z Drainage of Bladder with Drainage Device, Via Natural or Artificial Opening (ICD-10-PCS; 2023-11-27)
DX: F44.5 Conversion disorder with seizures or convulsions (principal); I10 Essential (primary) hypertension; E11.65 Type 2 diabetes mellitus with hyperglycemia; E78.5 Hyperlipidemia, unspecified; F33.3 Major depressive disorder, recurrent, severe with psychotic symptoms; F41.9 Anxiety disorder, unspecified; G89.29 Other chronic pain; Z86.73 Personal history of transient ischemic attack (TIA), and cerebral infarction without residual deficits; Z95.818 Presence of other cardiac implants and grafts; Z79.4 Long term (current) use of insulin; Z63.8 Other specified problems related to primary support group; Z20.822 Contact with and (suspected) exposure to COVID-19
CPT/HCPCS: J0133; J1650; J1953; J2470

== ENCOUNTER 2023-12-07 17:55 | Inpatient (IN) | payer MEDICARE ==
[2023-12-07] VITALS (66 sets, daily range): BP systolic 71–161; BP diastolic 36–130
[~2023-12-07] VITALS: Ht 177.8 cm; Wt 94.0 kg
[~2023-12-07 17:55] MED LIST changes: +GABAPENTIN100 MG PO; +LYRICA200 MG PO; +OXYCODONE5 M1 PO
[2023-12-07] MEDS ORDERED: PROPOFOL 100 ML IV ONE ×2 (18:04→18:05)
[2023-12-07] MEDS ORDERED: SODIUM CHLORIDE 0.9% 1,000 ML IV ONE ×5 (18:19→21:35)
[2023-12-07] MEDS ORDERED: LORazepam 2 MG/ML ONE (18:29)
[2023-12-07 18:31] LABS: EOS% 8.5 % (0-8); HEMATOCRIT 42.7 % (39.0-50.0); HEMOGLOBIN 14.3 g/dl (14.0-18.0); LYMPH% 26.8 % (15-41); MEAN CELL VOLUME 94.7 fL CALC (80.0-100.0); MEAN CORPUSCULAR HGB 31.7 pG CALC (26.0-32.0); MEAN CORPUSCULAR HGB CONC 33.5 g/dL CAL (32.0-36.0); MONO% 6.4 % (2-13); NEUT# 4.53 thou/uL (1.82-7.42); NEUT% 56.3 % (42-76); RED BLOOD COUNT 4.51 mill/uL (4.70-6.10); RED CELL DISTRI WIDTH 13.3 % (11.5-15.5)
[2023-12-07 18:43] LABS: ALBUMIN 4.5 g/dL (3.2-5.0); BILIRUBIN, TOTAL 0.6 mg/dL (0.2-1.3); CREATININE 0.7 mg/dL (0.7-1.3); POTASSIUM 4.8 mmol/l (3.5-5.1); TOTAL PROTEIN 7.5 g/dL (6.3-8.2)
[2023-12-07] MEDS ORDERED: LORazepam 2 MG/ML IV ONE (19:05)
[2023-12-07] MEDS ORDERED: diazePAM 10 MG/2 ML VIAL IV ONE (19:10)
[2023-12-07 19:20] LABS: URINE BILIRUBIN - DIPSTICK Negative (NEGATIVE); URINE BLOOD DIPSTICK Negative (NEGATIVE); URINE COLOR Yellow; URINE GLUCOSE - DIPSTICK Negative (NEGATIVE); URINE KETONE Negative (NEGATIVE); URINE LEUK ESTERASE Negative (NEGATIVE); URINE NITRITE - DIPSTICK Negative (Negative); URINE PROTEIN - DIPSTICK Negative (NEG-TRACE); URINE UROBILINOGEN - DIPSTICK 0.2 E.U./dL (0.2)
[2023-12-07] MEDS ORDERED: SODIUM CHLORIDE 0.9% 500 ML IV ONE (21:35)
[2023-12-07] MEDS ORDERED: NOREPINEPHRINE BITARTRATE 4 MG in DEXTROSE 5% 250 ML IV PRN (21:35)
[2023-12-07] MEDS ORDERED: SODIUM CHLORIDE 0.9% 1,000 ML IV PRN (21:40)
[2023-12-07] MEDS ORDERED: PROPOFOL 100 ML IV PRN (21:40)
[2023-12-07] MEDS ORDERED: LORazepam 2 MG/ML IV PRN (21:40)
[2023-12-08] VITALS (50 sets, daily range): BP systolic 86–125; BP diastolic 51–74
[2023-12-08] MEDS ORDERED: MORPHINE SULFATE 4 MG/ML VIAL IV PRN (09:25)
[2023-12-08] MEDS ORDERED: ALPRAZolam 0.5 MG/TAB PO PRN (12:45)
[2023-12-08] MEDS ORDERED: METOPROLOL TARTRATE 25 MG/TAB PO SCH (13:30)
[2023-12-08] MEDS ORDERED: ASPIRIN EC 81 MG/TAB PO SCH (13:30)
[2023-12-08] MEDS ORDERED: PANTOPRAZOLE SODIUM Sesquihydr 40 MG/TAB PO SCH (13:30)
[2023-12-08] MEDS ORDERED: lamoTRIgine 100 MG/TAB PO SCH (13:30)
[2023-12-08] MEDS ORDERED: PREGABALIN 100 MG/CAP PO SCH (15:00)
[2023-12-08] MEDS ORDERED: traZODone HCL 50 MG/TAB PO SCH (21:00)
[2023-12-08] MEDS ORDERED: ENOXAPARIN SODIUM 40 MG/0.4 ML SYR SC SCH (21:00)
[2023-12-08] MEDS ORDERED: FLUTICASONE PROPIONATE (Nasal) 50MCG/SPRAY INH SCH (22:07)
[2023-12-09] VITALS (29 sets, daily range): BP systolic 68–110; BP diastolic 33–74
[2023-12-09 05:35] LABS: HEMATOCRIT 38.5 % (39.0-50.0); MEAN CORPUSCULAR HGB CONC 31.9 g/dL CAL (32.0-36.0); RED BLOOD COUNT 3.97 mill/uL (4.70-6.10); RED CELL DISTRI WIDTH 13.7 % (11.5-15.5)
[2023-12-09 05:44] LABS: HEMOGLOBIN 12.3 g/dl (14.0-18.0)
[2023-12-09 05:50] LABS: ALBUMIN 3.7 g/dL (3.2-5.0); CREATININE 0.8 mg/dL (0.7-1.3); MAGNESIUM 2.1 mg/dL (1.6-2.3); POTASSIUM 4.8 mmol/l (3.5-5.1); TOTAL PROTEIN 6.5 g/dL (6.3-8.2)
[2023-12-09] MEDS ORDERED: ESCITALOPRAM 10 MG/TAB PO SCH (09:00)
[2023-12-10] MEDS ORDERED: TRAMADOL HYDROC50 M1 PO (17:42)
[2023-12-10] MEDS ORDERED: KEFLEX500 MG PO (17:42)
== END 2023-12-09 10:35 | disposition home or self-care (01) | DRG 880 ==
LOC: ED 17:55 → ED-I 20:15 → ED 20:45 → ICU 20:46
PROVIDERS: Family Medicine; ADMIT Internal Medicine; ATTEND Internal Medicine
PROC: 0T9B70Z Drainage of Bladder with Drainage Device, Via Natural or Artificial Opening (ICD-10-PCS; principal; 2023-12-07)
PROC: 5A1935Z Respiratory Ventilation, Less than 24 Consecutive Hours (ICD-10-PCS; 2023-12-07)
DX: F44.5 Conversion disorder with seizures or convulsions (principal); I95.9 Hypotension, unspecified; R09.02 Hypoxemia; I10 Essential (primary) hypertension; E11.40 Type 2 diabetes mellitus with diabetic neuropathy, unspecified; E11.65 Type 2 diabetes mellitus with hyperglycemia; F33.3 Major depressive disorder, recurrent, severe with psychotic symptoms; F41.9 Anxiety disorder, unspecified; E78.5 Hyperlipidemia, unspecified; Z95.818 Presence of other cardiac implants and grafts; Z63.8 Other specified problems related to primary support group; Z86.73 Personal history of transient ischemic attack (TIA), and cerebral infarction without residual deficits
CPT/HCPCS: J1650; J1953; J2060

== ENCOUNTER 2023-12-10 16:56 | Emergency (ER) | payer MEDICARE ==
[~2023-12-10] VITALS: Ht 177.8 cm; Wt 108.0 kg
[2023-12-10] MEDS ORDERED: LIDOcaine HCl 1% (Local Anesth.) 20 ML VIAL STI STA ×2 (17:07)
[2023-12-10] MEDS ORDERED: NEOMYCIN-BACITRACIN-POLYMYXIN 0.5 GM/PAK PAK TOP ONE (17:10)
[2023-12-10] MEDS ORDERED: POVIDONE IODINE 0.5 OZ/BTL TOP ONE ×2 (17:10)
[2023-12-10] MEDS ORDERED: Diph, Acellular Pertussis, Tet 0.5 ML/VIAL (Tdap) SDV IM ONE (17:10)
[2023-12-10] MEDS ORDERED: SODIUM CHLORIDE 500 ML BTL IR ONE (17:10)
[2023-12-10] MEDS ORDERED: KEFLEX500 MG PO (17:42)
[2023-12-10] MEDS ORDERED: TRAMADOL HYDROC50 M1 PO (17:42)
[2023-12-10 17:53] VITALS: BP 127/67
== END 2023-12-10 17:59 | disposition home or self-care (01) ==
LOC: ED 16:56
PROC: 0HQGXZZ Repair Left Hand Skin, External Approach (ICD-10-PCS; principal; 2023-12-10)
DX: S61.412A Laceration without foreign body of left hand, initial encounter (principal); I10 Essential (primary) hypertension; E11.9 Type 2 diabetes mellitus without complications; F41.9 Anxiety disorder, unspecified; F32.A Depression, unspecified; W26.0XXA Contact with knife, initial encounter; Y93.G1 Activity, food preparation and clean up; Y92.000 Kitchen of unspecified non-institutional (private) residence as the place of occurrence of the external cause; Z86.73 Personal history of transient ischemic attack (TIA), and cerebral infarction without residual deficits; Z95.818 Presence of other cardiac implants and grafts

== ENCOUNTER 2023-12-11 07:22 | Emergency (ER) | payer MEDICARE ==
[~2023-12-11] VITALS: Ht 177.8 cm; Wt 88.9 kg
[~2023-12-11 07:22] MED LIST changes: +KEFLEX500 MG PO
[2023-12-11 07:57] LABS: BASO% 0.5 % (0-3); EOS% 4.5 % (0-8); HEMATOCRIT 40.4 % (39.0-50.0); HEMOGLOBIN 13.7 g/dl (14.0-18.0); IMMATURE GRANULOCYTES 0.3 % (0.0-5.0); LYMPH% 22.3 % (15-41); MEAN CELL VOLUME 92.7 fL CALC (80.0-100.0); MEAN CORPUSCULAR HGB 31.4 pG CALC (26.0-32.0); MEAN CORPUSCULAR HGB CONC 33.9 g/dL CAL (32.0-36.0); MONO% 4.7 % (2-13); NEUT# 5.08 thou/uL (1.82-7.42); NEUT% 67.7 % (42-76); RED BLOOD COUNT 4.36 mill/uL (4.70-6.10)
[2023-12-11 08:08] LABS: INTERNATIONAL NORMALIZED RATIO 1.1 RATIO (0.7-1.3)
[2023-12-11 08:09] LABS: ALBUMIN 4.5 g/dL (3.2-5.0); ALKALINE PHOSPHATASE 78 u/l (38-126); ANION GAP 11 (6-22 (CALC)); BILIRUBIN, TOTAL 0.9 mg/dL (0.2-1.3); BUN 17 mg/dL (8-23); BUN/CREATININE RATIO 21 (12-20 (CALC)); CALCULATED LDLCHOLESTEROL 114 mg/dL (62-129 (CALC)); CARBON DIOXIDE 24 mmol/l (22-30); CHLORIDE 107 mmol/l (95-108); CHOLESTEROL HDL RATIO 3.2 (<4.4 (CALC)); CREATININE 0.8 mg/dL (0.7-1.3); ESTIMATED GFR 101 ML/MIN (>=90 (CALC)); HDL CHOLESTEROL 60 mg/dL (39.0-59.0); POTASSIUM 3.9 mmol/l (3.5-5.1); PROTHROMBIN TIME 10.1 SECONDS (9.0-12.5); SGOT/AST 43 u/l (19-48); SODIUM 138 mmol/l (137-146); TOTAL CHOLESTEROL 191 mg/dl (0-199); TOTAL TRIGLYCERIDES 85 mg/dl (0-149); VLDL CHOLESTROL 17 mg/dl (4-45 (CALC))
[2023-12-11] MEDS ORDERED: LevETIRAcetam 500 MG/TAB PO ONE (08:25)
[2023-12-12 08:00] VITALS: BP 145/79
== END 2023-12-12 08:22 | disposition left against medical advice (07) ==
LOC: ED 07:22
PROVIDERS: Family Medicine
DX: F44.5 Conversion disorder with seizures or convulsions (principal); E11.40 Type 2 diabetes mellitus with diabetic neuropathy, unspecified; I10 Essential (primary) hypertension; F41.9 Anxiety disorder, unspecified; F32.A Depression, unspecified; Z86.73 Personal history of transient ischemic attack (TIA), and cerebral infarction without residual deficits; Z95.818 Presence of other cardiac implants and grafts; Z53.29 Procedure and treatment not carried out because of patient's decision for other reasons
CPT/HCPCS: Q9967

== ENCOUNTER 2023-12-27 11:58 | Emergency (ER) | payer MEDICARE ==
[~2023-12-27] VITALS: Ht 177.8 cm; Wt 102.0 kg
[2023-12-27] VITALS (38 sets, daily range): BP systolic 66–188; BP diastolic 35–106
[2023-12-27] MEDS ORDERED: ROCURONIUM BROMIDE 10 MG/ML 5ML VIAL IV ONE ×2 (12:05→14:35)
[2023-12-27] MEDS ORDERED: SODIUM CHLORIDE 0.9% 1,000 ML IV ONE ×2 (12:10→12:50)
[2023-12-27] MEDS ORDERED: KETAMINE HCL 50 MG/ML 10 ML VIAL IV ONE (12:10)
[2023-12-27] MEDS ORDERED: SODIUM CHLORIDE 0.9% 100 ML IV ONE (12:12)
[2023-12-27 12:23] LABS: BASO% 1.2 % (0-3); EOS% 3.9 % (0-8); HEMATOCRIT 41.4 % (39.0-50.0); HEMOGLOBIN 13.7 g/dl (14.0-18.0); IMMATURE GRANULOCYTES 0.5 % (0.0-5.0); LYMPH% 32.7 % (15-41); MEAN CELL VOLUME 94.3 fL CALC (80.0-100.0); MEAN CORPUSCULAR HGB 31.2 pG CALC (26.0-32.0); MEAN CORPUSCULAR HGB CONC 33.1 g/dL CAL (32.0-36.0); MONO% 6.3 % (2-13); NEUT# 3.26 thou/uL (1.82-7.42); NEUT% 55.4 % (42-76); RED BLOOD COUNT 4.39 mill/uL (4.70-6.10); RED CELL DISTRI WIDTH 12.8 % (11.5-15.5)
[2023-12-27] MEDS ORDERED: PROPOFOL 100 ML IV ONE (12:25)
[2023-12-27 12:34] LABS: ALBUMIN 4.3 g/dL (3.2-5.0); ALKALINE PHOSPHATASE 57 u/l (38-126); BILIRUBIN, TOTAL 0.9 mg/dL (0.2-1.3); BUN 17 mg/dL (8-23); BUN/CREATININE RATIO 16 (12-20 (CALC)); CARBON DIOXIDE 26 mmol/l (22-30); CHLORIDE 109 mmol/l (95-108); CPK 233 u/l (55-170); CREATININE 1.1 mg/dL (0.7-1.3); ESTIMATED GFR 76 ML/MIN (>=90 (CALC)); LIPASE 53 u/l (23-300); SGOT/AST 39 u/l (19-48); SODIUM 140 mmol/l (137-146); TOTAL PROTEIN 7.4 g/dL (6.3-8.2)
[2023-12-27 12:44] LABS: ANION GAP 10 (6-22 (CALC)); POTASSIUM 4.7 mmol/l (3.5-5.1)
[2023-12-27] MEDS ORDERED: NOREPINEPHRINE BITARTRATE 4 MG in DEXTROSE 5% 250 ML IV ONE (12:50)
[2023-12-27] MEDS ORDERED: SODIUM CHLORIDE 0.9% 500 ML IV ONE ×2 (12:50→17:15)
[2023-12-27 14:04] LABS: URINE BILIRUBIN - DIPSTICK Negative (NEGATIVE); URINE BLOOD DIPSTICK Negative (NEGATIVE); URINE COLOR Yellow; URINE GLUCOSE - DIPSTICK Negative (NEGATIVE); URINE KETONE Negative (NEGATIVE); URINE LEUK ESTERASE Negative (NEGATIVE); URINE NITRITE - DIPSTICK Negative (Negative); URINE PROTEIN - DIPSTICK Negative (NEG-TRACE); URINE SPECIFIC GRAVITY 1.015; URINE UROBILINOGEN - DIPSTICK 0.2 E.U./dL (0.2)
[2023-12-27] MEDS ORDERED: PROPOFOL 10 MG/ML 100ML VIAL IV ONE (15:15)
[2023-12-27] MEDS ORDERED: PROPOFOL 100 ML IV PRN (16:35)
== END 2023-12-27 17:48 | disposition short-term general hospital (02) ==
LOC: ED 11:58 → ED-I 12:45 → ED 17:48
PROVIDERS: Family Medicine
PROC: 0T9B70Z Drainage of Bladder with Drainage Device, Via Natural or Artificial Opening (ICD-10-PCS; principal; 2023-12-27)
PROC: 02HV33Z Insertion of Infusion Device into Superior Vena Cava, Percutaneous Approach (ICD-10-PCS; 2023-12-27)
PROC: 0BH17EZ Insertion of Endotracheal Airway into Trachea, Via Natural or Artificial Opening (ICD-10-PCS; 2023-12-27)
PROC: 5A1935Z Respiratory Ventilation, Less than 24 Consecutive Hours (ICD-10-PCS; 2023-12-27)
DX: G40.901 Epilepsy, unspecified, not intractable, with status epilepticus (principal); I10 Essential (primary) hypertension; E11.9 Type 2 diabetes mellitus without complications; F41.9 Anxiety disorder, unspecified; F32.A Depression, unspecified; Z86.73 Personal history of transient ischemic attack (TIA), and cerebral infarction without residual deficits; Z95.818 Presence of other cardiac implants and grafts; Z20.822 Contact with and (suspected) exposure to COVID-19
CPT/HCPCS: J1953

== ENCOUNTER 2024-02-15 17:43 | Inpatient (IN) | payer MEDICARE ==
[~2024-02-15] VITALS: Ht 177.8 cm; Wt 75.0 kg
[2024-02-15] VITALS (49 sets, daily range): BP systolic 112–167; BP diastolic 63–118
[~2024-02-15 17:43] MED LIST changes: +CITALOPRAM40 MG PO; +FIORICET PO; +LAMICTAL200 M1 PO; +PROTONIX40 M2 PO; +SINGULAIR10 MG PO; +TOPROL XL25 M1 PO; +XANAX1 MG PO
--- NOTE | 2024-02-15 17:43 | NUR ---
PT TO ROOM INTBATED VIA EMS
[2024-02-15] MEDS ORDERED: PROPOFOL 100 ML IV ONE ×2 (17:55→21:32)
[2024-02-15 18:04] LABS: BASO% 0.6 % (0-3); EOS% 6.6 % (0-8); HEMOGLOBIN 14.5 g/dl (14.0-18.0); IMMATURE GRANULOCYTES 0.2 % (0.0-5.0); LYMPH% 38.4 % (15-41); MEAN CELL VOLUME 94.5 fL CALC (80.0-100.0); MEAN CORPUSCULAR HGB 31.9 pG CALC (26.0-32.0); MEAN CORPUSCULAR HGB CONC 33.7 g/dL CAL (32.0-36.0); NEUT# 3.95 thou/uL (1.82-7.42); NEUT% 48.2 % (42-76); RED BLOOD COUNT 4.55 mill/uL (4.70-6.10); RED CELL DISTRI WIDTH 12.4 % (11.5-15.5)
[2024-02-15 18:18] LABS: BILIRUBIN, TOTAL 0.5 mg/dL (0.2-1.3); BUN 16 mg/dL (8-23); BUN/CREATININE RATIO 19 (12-20 (CALC)); CHLORIDE 102 mmol/l (95-108); CREATININE 0.8 mg/dL (0.7-1.3); ESTIMATED GFR 100 ML/MIN (>=90 (CALC)); ETHYL ALCOHOL 0 mg/dl (0-30); POTASSIUM 4.2 mmol/l (3.5-5.1); SGOT/AST 23 u/l (19-48); SODIUM 142 mmol/l (137-146); TOTAL PROTEIN 6.9 g/dL (6.3-8.2)
[2024-02-15 18:28] LABS: ANION GAP 13 (6-22 (CALC)); CARBON DIOXIDE 31 mmol/l (22-30)
[2024-02-15 18:29] LABS: ALKALINE PHOSPHATASE 97 u/l (38-126)
[2024-02-15] MEDS ORDERED: SODIUM CHLORIDE 0.9% 1,000 ML IV ONE ×2 (18:36→18:40)
--- NOTE | 2024-02-15 18:45 | NUR ---
RECIEVED REPORT FROM PATIENCE CAR.
--- NOTE | 2024-02-15 18:57 | NUR ---
REPORT TO PAUL CAR
--- NOTE | 2024-02-15 19:10 | NUR ---
HER CATH 18 FR INSERTED AT THIS TIME, CLEAR/YELLOW OUTPUT NOTED. PT TOLORATED PROCEDURE WELL. PT PLACED IN GOWN AND READJUSTED IN BED. PT HAS ET PER RT SETTINGS 26 AT THE LIP. PT RUNNING AT 10 MCG PER MINUTE. PT IS ON SOFT CUFF WRIST RESTRAINTS, RADIAL PULSES PALPABLE, CAP REFILL <3, SKIN INTACT.
[2024-02-15] MEDS ORDERED: diazePAM 10 MG/2 ML VIAL IV ONE (19:20)
[2024-02-15 19:22] LABS: URINE BILIRUBIN - DIPSTICK Negative (NEGATIVE); URINE BLOOD DIPSTICK Negative (NEGATIVE); URINE COLOR Yellow; URINE GLUCOSE - DIPSTICK Negative (NEGATIVE); URINE KETONE Negative (NEGATIVE); URINE LEUK ESTERASE Negative (NEGATIVE); URINE NITRITE - DIPSTICK Negative (Negative); URINE PROTEIN - DIPSTICK Negative (NEG-TRACE); URINE SPECIFIC GRAVITY 1.025; URINE UROBILINOGEN - DIPSTICK 0.2 E.U./dL (0.2)
[2024-02-15] MEDS ORDERED: HYDROmorphone HCL 2 MG/AMP IV ONE (20:15)
--- NOTE | 2024-02-15 20:35 | NUR ---
@1950 PATIENT WAKING UP AT THIS TIME. PROPOFOL GTT INCREASED TO 20MCG/KG/MIN @1954 PROPOFOL INCREASED TO 25MCG/KG/MIN @1999 PATIENT CONTINUED TO TAP AT BEDRAILS INCREASED TO 30MCG/KG/MIN @2004 PATIENT ONCE AGAIN STARTS TO TAP AT BEDRAILS INCRESED TO 35MCG/KG/MIN @2014 PROPOFOL INCREASED TO 40MCG/KG/MIN @2024 PROPOFOL INCREASED TO 45MCG/KG/MIN PATIENTS HEAD NOTED TO RAISE FROM BED @2034 PROPOFOL NOW AT 50MCG/KG/MIN
--- NOTE | 2024-02-15 20:51 | NUR ---
REPORT CALLED TO DANIE DOMINGUEZ IN ICU BED 8.
--- NOTE | 2024-02-15 21:10 | NUR ---
PT TRANSPORTED TO ICU AT THIS TIME ALONGSIDE RT. DANIE CAR. AT BEDSIDE.
--- NOTE | 2024-02-15 21:20 | NUR ---
PT ARRIVED TO UNIT ACCOMPANIED BY RT AND ER NURSE. VENT IN USE. PROFOFOL INFUSING. RATE INCREASED TO 55 MCG DUE TO PT THRUSTING UPPER BODY UP AND BENDING KNEES. BILATERAL WRIST RESTRAINTS IN USE FOR SAFETY. HER DRAINING PINK TINGED URINE. ET TUBE 24CM AT LIP. OG TUBE CONNECTED TO LIS.
[2024-02-15] MEDS ORDERED: ACETAMINOPHEN 325 MG/TAB PO PRN (21:30)
[2024-02-15] MEDS ORDERED: SODIUM CHLORIDE 0.9% 1,000 ML IV PRN (21:30)
[2024-02-15] MEDS ORDERED: MAGNESIUM HYDROXIDE 30 ML UDC PO PRN (21:30)
--- NOTE | 2024-02-15 23:00 | NUR ---
PT RESTING CALMLY. SOFT RESTRAINTS TO BILATERAL WRIST FOR PT SAFETY. VSS. PT REPOSITIONED FOR COMFORT. NO PAIN BEHAVIORS NOTED. SEIZURE PRECAUTIONS IN PLACE. NO SEIZURE LIKE ACTIVITY NOTED.
[2024-02-16] VITALS (60 sets, daily range): BP systolic 83–139; BP diastolic 36–84
--- NOTE | 2024-02-16 01:00 | NUR ---
ORAL SUTIONING COMPLETED. THIN CLEAR SECREATIONS. MOUTH CARE DONE.
[2024-02-16] MEDS ORDERED: PROPOFOL 100 ML IV ONE (01:41)
[2024-02-16] MEDS ORDERED: PROPOFOL 100 ML IV PRN (02:05)
--- NOTE | 2024-02-16 03:00 | NUR ---
ORAL SUCTIONING AND ET TUBE SUTIONING DONE. PT AWOKE ATTEMPTING TO PULL OUT ET TUBE. ET TUBE REMAINS AT 24CM AT THE LIP. PT REPOSITIONED. PROPOFOL TITRATED FOR SEDATION.
--- NOTE | 2024-02-16 05:10 | NUR ---
BLOOD OBTAINED FROM CENTRAL LINE AND SENT TO LAB OR A.M. LABS ORDERED.
[2024-02-16 05:45] LABS: MEAN CELL VOLUME 94.3 fL CALC (80.0-100.0); MEAN CORPUSCULAR HGB 32.2 pG CALC (26.0-32.0); MEAN CORPUSCULAR HGB CONC 34.1 g/dL CAL (32.0-36.0); RED BLOOD COUNT 3.7 mill/uL (4.70-6.10); RED CELL DISTRI WIDTH 12.4 % (11.5-15.5)
[2024-02-16 05:46] LABS: HEMATOCRIT 34.9 % (39.0-50.0); HEMOGLOBIN 11.9 g/dl (14.0-18.0)
[2024-02-16 05:53] LABS: ALBUMIN 3.3 g/dL (3.2-5.0); BILIRUBIN, TOTAL 0.5 mg/dL (0.2-1.3); CREATININE 0.7 mg/dL (0.7-1.3); MAGNESIUM 1.6 mg/dL (1.6-2.3); POTASSIUM 3.9 mmol/l (3.5-5.1); TOTAL PROTEIN 5.8 g/dL (6.3-8.2)
--- NOTE | 2024-02-16 06:00 | NUR ---
600 ML OUTPUT FROM OG TUBE. PT RESTING QUIETLY. PROPOFOL IN USE. IVF INFUSING, SEIZURE PRECAUTIONS. NO SEIZURE LIKE ACTIVITY NOTED. PT TOLERATING VENTILATOR WELL. SCD'S IN USE.
--- NOTE | 2024-02-16 08:00 | NUR ---
REPORT RECEIVED FROM NIGHT NURSE. PATIENT INTUBATED, ET TUBE NOTED AT 24 AT THE LIP LINE. PATIENT AROUSABLE TO SPEECH. S1S2 NOTED, NORMAL SINUS ON TELE. LUNG SOUNDS CLEAR, RESPIRATIONS NON LABORED, FIO2 28%, O2 SATURATION 100%. ABDOMEN SOFT, NON DISTENDED, WITH ACTIVE BOWEL SOUNDS. UPPER PULSES STRONG, LOWER WEAK. SKIN WDI. HER IN PLACE AND DRAINING. SOFT WRIST RESTRAINTS IN PLACE, GOOD CIRCULATION NOTED.
[2024-02-16] MEDS ORDERED: LORazepam 2 MG/ML IV PRN (08:20)
--- NOTE | 2024-02-16 08:30 | NUR ---
PATIENT EXTUBATED AT 0819. RT AT BEDSIDE. CALL LIGHT IN REACH.
[2024-02-16] MEDS ORDERED: PHENOL 1.4 %/BTL MT PRN (08:55)
[2024-02-16] MEDS ORDERED: PANTOPRAZOLE SODIUM Sesquihydr 40 MG/TAB PO SCH (09:00)
[2024-02-16] MEDS ORDERED: METOPROLOL SUCCINATE 25 MG/TAB-TOPROL XL PO SCH (09:00)
[2024-02-16] MEDS ORDERED: lamoTRIgine 100 MG/TAB PO SCH (09:00)
[2024-02-16] MEDS ORDERED: MORPHINE SULFATE 4 MG/ML VIAL IV PRN (09:15)
--- NOTE | 2024-02-16 09:50 | NUR ---
HER REMOVED, PATIENT TOLERATED WELL. URINAL GIVEN. CALL LIGHT IN REACH.
--- NOTE | 2024-02-16 10:00 | NUR ---
PATIENT LAYING DOWN IN BED RESTING. ALL NEEDS MET. CALL LIGHT IN REACH.
[2024-02-16] MEDS ORDERED: IBUPROFEN200 MG PO (10:13)
[2024-02-16] MEDS ORDERED: CELEXA40 M1 PO (10:18)
[2024-02-16] MEDS ORDERED: MONTELUKAST SOD10 MG PO (10:18)
[2024-02-16] MEDS ORDERED: ALPRAZOLAM0.5 M2 PO (10:23)
--- NOTE | 2024-02-16 12:00 | NUR ---
PATIENT LAYING DOWN IN BED RESTING. ALL NEEDS MET. CALL LIGHT IN REACH.
--- NOTE | 2024-02-16 12:58 | NUR ---
PATIENT STATES HE IS ON [facility] AND NEEDS TO CALL. CALLED [facility] OFFICE WITH PATIENT. [facility] OFFICE SAID THEY COULD NOT FIND HIM IN THE SYSTEM AND ASKED IF HE WAS CRD. PATIENT SAID YES, WAS TRANSFERRED, CRD SAID THEY COULD NOT FIND HIM IN THE SYSTEM. [facility] WILL FOLLOW UP.
--- NOTE | 2024-02-16 13:04 | NUR ---
CALLED [phone] SPOKE WITH PAUL AT [facility] OFFICE. PER PAUL : [facility] HAS A MANDATORY, IN PERSON CHECK IN AT THEIR OFFICE Friday, ON 02/18/24. IF HE IS CURRENTLY STILL IN THE HOSPITAL AT THAT TIME THEY WILL ACCEPT A PHONE CALL CHECK IN, FROM A HOSPITAL PHONE. THEY ALSO REQUESTED TO BE NOTIFIED UPON DISCHARGE.
--- NOTE | 2024-02-16 14:00 | NUR ---
PATIENT SITTING UP IN BED. ALL NEEDS MET. CALL LIGHT IN REACH.
--- NOTE | 2024-02-16 16:00 | NUR ---
PATIENT LAYING DOWN IN BED ASLEEP. ALL NEEDS MET. CALL LIGHT IN REACH.
--- NOTE | 2024-02-16 18:00 | NUR ---
PATIENT SITTING UP IN BED EATING. ALL NEEDS MET. CALL LIGHT IN REACH.
--- NOTE | 2024-02-16 19:38 | NUR ---
REPORT RECEIVED FROM OFF-GOING NURSES, PT RESTING IN BED WITH EYES CLOSED. NO DISTRESS, VSS.
[2024-02-16] MEDS ORDERED: LevETIRAcetam 500 MG/TAB PO SCH (20:00)
[2024-02-16] MEDS ORDERED: ENOXAPARIN SODIUM 40 MG/0.4 ML SYR SC SCH (21:00)
--- NOTE | 2024-02-16 21:08 | NUR ---
PT C/O ITCHING ALL OVER -BACK, ARMS, NECK, AND FEET. PT REPORTS THAT HE DOES NOT TAKE LAMICTAL AT HOME AND QUESTIONS IF HE IS ALLERGIC TO IT. PT STATES, "THIS IS WHAT HAPPENS WHEN I TAKE BACTRIM." CALL PLACED TO DR. HAN. MESSAGE LEFT REQUESTING PHYSICIAN TO CALL UNIT. AWAITNG REPLY. VSS. NO REDNESS OR RASH NOTED.
--- NOTE | 2024-02-16 21:19 | NUR ---
ORDER RECEIVED FOR JEAN PIERRE
[2024-02-16] MEDS ORDERED: DiphenhydrAMINE HCL 50 MG/ML SDV IV PRN (21:25)
--- NOTE | 2024-02-16 22:24 | NUR ---
ITCHING RESOLVED. PT RESTING WITH EYES CLOSED. NO DISTRESS. VSS. SEIZURE PRECAUTIONS IN USE.
[2024-02-17] VITALS (13 sets, daily range): BP systolic 86–125; BP diastolic 47–85
--- NOTE | 2024-02-17 | NUR ---
PT RETING IN BED WITH EYES CLOSED. SEIZURE PRECAUTIONS IN USE. NO SEIZURE-LIKE ACTIVITY NOTED. PT VOIDS TO URINAL WITHOUT DIFFICULTY. IVF INFUSING. NO DISTRESS. VSS.
--- NOTE | 2024-02-17 02:00 | NUR ---
PT RESTING. NO DISTRESS. CONTINUE WITH PLAN OF CARE
--- NOTE | 2024-02-17 03:26 | NUR ---
ARTIFACT AN INCREASED HR NOTED ON MONITOR, PT FOUND SHAKING WITH GROSS TREMORS IN BED. PT RESPONSIVE. OPENED EYES TO VOICE AND STATED, "I'M HAVING A SEIZURE." PT ASKED TO STOP SHAKING. GROSS TREMORS STOPPED. PT CONTINUED WITH FINE TREMORS INTERMITTENTLY. PT DENIES AURA. O2 SAT REMAINED 99% THROUGHTOUT 1 MINUTE EPISODE. ATIVAN GIVEN PER PRN ORDER. PT C/O HEADACHE. PT REPORTS HX OF MIGRAINE HEADACHES. PUPILS 4MM, EQUAL AND REACTIVE. CONTINUING WITH PLAN OF CARE AND CLOSE MONITORING. PT INSTRUCED TO STAY IN BED. HOB ELEVATED. SEIZURE PRECAUTIONS IN USE.
--- NOTE | 2024-02-17 04:30 | NUR ---
PT RESTING WITH EYES CLOSED. MORPHINE GIVEN FOR HEADACHE. PT DECLINED TYLENOL EXPLAINING THAT TYLENOL DOES NOT HELP HIS MIGRAINE HEADACHES. NO POST-ICTAL PHASE NOTED AFTER SEIZURE-LIKE ACTIVITY. VSS. NO DISTRESS. IVF INFUSING TO RIGHT IJ. DRSG INTACT.
[2024-02-17 05:43] LABS: HEMATOCRIT 38.4 % (39.0-50.0); HEMOGLOBIN 12.8 g/dl (14.0-18.0); MEAN CELL VOLUME 95.5 fL CALC (80.0-100.0); MEAN CORPUSCULAR HGB 31.8 pG CALC (26.0-32.0); MEAN CORPUSCULAR HGB CONC 33.3 g/dL CAL (32.0-36.0); RED BLOOD COUNT 4.02 mill/uL (4.70-6.10); RED CELL DISTRI WIDTH 12.4 % (11.5-15.5)
[2024-02-17 05:48] LABS: CREATININE 0.8 mg/dL (0.7-1.3); MAGNESIUM 1.9 mg/dL (1.6-2.3); POTASSIUM 4.3 mmol/l (3.5-5.1)
--- NOTE | 2024-02-17 05:53 | NUR ---
BLOOD COLLECTED FROM CENTRAL LINE AND SENT TO LAB. HEADACHE RESOLVED AFTER MORPHINE. NO FURTHER SEIZURE ACTIVITY. NO DISTRESS. VSS.
--- NOTE | 2024-02-17 07:19 | NUR ---
REPORT RECEIVED FROM NIGHT NURSE. PATIENT AXO X3. S1S2 NOTED, NORMAL SINUS ON TELE. LUNG SOUNDS CLEAR, NO COUGH OR SOB NOTED. ABDOMEN SOFT, NON DISTENDED, NON TENDER, WITH ACTIVE BOWEL SOUNDS. UPPER PULSES STRONG, LOWER WEAK. SKIN WDI. CALL LIGHT IN REACH.
--- NOTE | 2024-02-17 08:00 | NUR ---
PATIENT SITTING UP IN BED. ALL NEEDS MET. CALL LIGHT IN REACH.
[2024-02-17] MEDS ORDERED: LEVETIRACETAM500 MG PO (09:10)
[2024-02-17] MEDS ORDERED: ONDANSETRON4 MG PO (09:10)
[2024-02-17] MEDS ORDERED: PROTONIX40 M2 PO (09:12)
[2024-02-17] MEDS ORDERED: FIORICET PO (09:20)
--- NOTE | 2024-02-17 10:00 | NUR ---
PATIENT SITTING UP IN BED WATCHING TV. ALL NEEDS MET. CALL LIGHT IN REACH.
--- NOTE | 2024-02-17 10:45 | NUR ---
Discharge instructions given. Patient verbalizes understanding of them. Discharged in stable condition via Wheelchair to Home with staff. All belongings sent with pt. IV removed.
--- NOTE | 2024-02-17 10:50 | NUR ---
[phone] AND SPOKE WITH PAUL LETTING HER KNOW OF PATIENT'S DISCHARGE.
== END 2024-02-17 10:45 | disposition home or self-care (01) | DRG 101 ==
LOC: ED 17:43 → ED-I 19:43 → ED 20:02 → ICU 20:03
PROVIDERS: Family Medicine; ADMIT Internal Medicine; ATTEND Internal Medicine
PROC: 0T9B70Z Drainage of Bladder with Drainage Device, Via Natural or Artificial Opening (ICD-10-PCS; principal; 2024-02-15)
PROC: 02HV33Z Insertion of Infusion Device into Superior Vena Cava, Percutaneous Approach (ICD-10-PCS; 2024-02-15)
PROC: 5A1935Z Respiratory Ventilation, Less than 24 Consecutive Hours (ICD-10-PCS; 2024-02-15)
DX: G40.901 Epilepsy, unspecified, not intractable, with status epilepticus (principal); E11.65 Type 2 diabetes mellitus with hyperglycemia; I10 Essential (primary) hypertension; E78.5 Hyperlipidemia, unspecified; G89.29 Other chronic pain; F41.9 Anxiety disorder, unspecified; F32.A Depression, unspecified; Z86.73 Personal history of transient ischemic attack (TIA), and cerebral infarction without residual deficits; Z95.818 Presence of other cardiac implants and grafts
CPT/HCPCS: J1650; J1953; J2060

== ENCOUNTER 2024-02-23 02:25 | Emergency (ER) | payer MEDICARE ==
[2024-02-23] VITALS (7 sets, daily range): BP systolic 106–114; BP diastolic 57–68
[~2024-02-23] VITALS: Ht 177.8 cm; Wt 75.0 kg
[~2024-02-23 02:25] MED LIST changes: +ALPRAZOLAM0.5 M2 PO; +CELEXA40 M1 PO; +IBUPROFEN200 MG PO; +LEVETIRACETAM500 MG PO; +ONDANSETRON4 MG PO
[2024-02-23 02:49] LABS: EOS% 7.2 % (0-8); HEMATOCRIT 38.3 % (39.0-50.0); HEMOGLOBIN 12.9 g/dl (14.0-18.0); IMMATURE GRANULOCYTES 0.3 % (0.0-5.0); LYMPH% 33.9 % (15-41); MEAN CELL VOLUME 92.5 fL CALC (80.0-100.0); MEAN CORPUSCULAR HGB 31.2 pG CALC (26.0-32.0); MEAN CORPUSCULAR HGB CONC 33.7 g/dL CAL (32.0-36.0); MONO% 6.5 % (2-13); NEUT# 3.6 thou/uL (1.82-7.42); NEUT% 51.1 % (42-76); RED BLOOD COUNT 4.14 mill/uL (4.70-6.10); RED CELL DISTRI WIDTH 12.5 % (11.5-15.5)
[2024-02-23] MEDS ORDERED: LAMICTAL200 M1 PO (02:53)
[2024-02-23 03:01] LABS: ALKALINE PHOSPHATASE 61 u/l (38-126); ANION GAP 13 (6-22 (CALC)); BILIRUBIN, TOTAL 0.3 mg/dL (0.2-1.3); BUN 14 mg/dL (8-23); BUN/CREATININE RATIO 18 (12-20 (CALC)); CARBON DIOXIDE 30 mmol/l (22-30); CHLORIDE 104 mmol/l (95-108); CREATININE 0.8 mg/dL (0.7-1.3); ESTIMATED GFR 100 ML/MIN (>=90 (CALC)); ETHYL ALCOHOL 0 mg/dl (0-30); POTASSIUM 4.4 mmol/l (3.5-5.1); SGOT/AST 23 u/l (19-48); SODIUM 142 mmol/l (137-146); TOTAL PROTEIN 6.7 g/dL (6.3-8.2)
== END 2024-02-23 04:25 | disposition home or self-care (01) ==
LOC: ED 02:25
PROVIDERS: Emergency Medicine
DX: G40.909 Epilepsy, unspecified, not intractable, without status epilepticus (principal); F41.9 Anxiety disorder, unspecified; I10 Essential (primary) hypertension; E11.9 Type 2 diabetes mellitus without complications; F32.A Depression, unspecified; Z86.73 Personal history of transient ischemic attack (TIA), and cerebral infarction without residual deficits; Z95.818 Presence of other cardiac implants and grafts

== ENCOUNTER 2024-03-05 19:59 | Emergency (ER) | payer MEDICARE ==
[~2024-03-05] VITALS: Ht 177.8 cm; Wt 81.0 kg
[2024-03-05] MEDS ORDERED: KETOROLAC TROMETHAMINE 30 MG/ML SDV IV ONE (20:10)
[2024-03-05 20:23] LABS: BASO% 0.7 % (0-3); EOS% 9.5 % (0-8); HEMATOCRIT 37.7 % (39.0-50.0); HEMOGLOBIN 12.5 g/dl (14.0-18.0); IMMATURE GRANULOCYTES 0.2 % (0.0-5.0); MEAN CELL VOLUME 96.4 fL CALC (80.0-100.0); MEAN CORPUSCULAR HGB CONC 33.2 g/dL CAL (32.0-36.0); MONO% 4.9 % (2-13); NEUT# 3.46 thou/uL (1.82-7.42); NEUT% 58.7 % (42-76); RED BLOOD COUNT 3.91 mill/uL (4.70-6.10); RED CELL DISTRI WIDTH 12.5 % (11.5-15.5)
[2024-03-05 20:35] LABS: BILIRUBIN, TOTAL 0.4 mg/dL (0.2-1.3); CREATININE 0.8 mg/dL (0.7-1.3); POTASSIUM 4.2 mmol/l (3.5-5.1); TOTAL PROTEIN 6.9 g/dL (6.3-8.2)
[2024-03-05 21:27] VITALS: BP 128/82
[2024-03-05 21:49] LABS: URINE BILIRUBIN - DIPSTICK Negative (NEGATIVE); URINE BLOOD DIPSTICK Negative (NEGATIVE); URINE GLUCOSE - DIPSTICK Negative (NEGATIVE); URINE KETONE Negative (NEGATIVE); URINE LEUK ESTERASE Negative (NEGATIVE); URINE NITRITE - DIPSTICK Negative (Negative); URINE PROTEIN - DIPSTICK Negative (NEG-TRACE); URINE SPECIFIC GRAVITY 1.015; URINE UROBILINOGEN - DIPSTICK 0.2 E.U./dL (0.2)
[2024-03-05 21:52] LABS: URINE COLOR Yellow
[2024-03-05 22:01] VITALS: BP 92/52
[2024-03-05] MEDS ORDERED: SODIUM CHLORIDE 0.9% 1,000 ML IV SCH (22:15)
[2024-03-05] MEDS ORDERED: MORPHINE SULFATE 4 MG/ML VIAL IV ONE (22:15)
[2024-03-05] MEDS ORDERED: SODIUM CHLORIDE 0.9% 1,000 ML IV ONE (22:20)
[2024-03-05 22:39] VITALS: BP 103/64
[2024-03-05 22:42] VITALS: BP 103/76
[2024-03-05 22:48] VITALS: BP 103/76
== END 2024-03-05 22:56 | disposition home or self-care (01) ==
LOC: ED 19:59
PROVIDERS: Family Medicine
DX: G40.909 Epilepsy, unspecified, not intractable, without status epilepticus (principal); R51.9 Headache, unspecified; M54.50 Low back pain, unspecified; M25.511 Pain in right shoulder; I10 Essential (primary) hypertension; E11.9 Type 2 diabetes mellitus without complications; F41.9 Anxiety disorder, unspecified; F32.A Depression, unspecified; Z86.73 Personal history of transient ischemic attack (TIA), and cerebral infarction without residual deficits; Z95.818 Presence of other cardiac implants and grafts; W10.9XXA Fall (on) (from) unspecified stairs and steps, initial encounter; Z79.899 Other long term (current) drug therapy

== ENCOUNTER 2024-03-07 15:22 | Emergency (ER) | payer MEDICARE ==
[~2024-03-07] VITALS: Ht 177.8 cm; Wt 72.0 kg
[2024-03-07] MEDS ORDERED: KETOROLAC TROMETHAMINE 30 MG/ML SDV IV ONE (15:25)
[2024-03-07 15:30] VITALS: BP 108/67
[2024-03-07 15:58] LABS: BASO% 0.8 % (0-3); EOS% 6.7 % (0-8); HEMATOCRIT 39.2 % (39.0-50.0); HEMOGLOBIN 12.8 g/dl (14.0-18.0); IMMATURE GRANULOCYTES 0.2 % (0.0-5.0); LYMPH% 32.1 % (15-41); MEAN CELL VOLUME 95.4 fL CALC (80.0-100.0); MEAN CORPUSCULAR HGB 31.1 pG CALC (26.0-32.0); MEAN CORPUSCULAR HGB CONC 32.7 g/dL CAL (32.0-36.0); MONO% 4.9 % (2-13); NEUT# 2.8 thou/uL (1.82-7.42); NEUT% 55.3 % (42-76); RED BLOOD COUNT 4.11 mill/uL (4.70-6.10); RED CELL DISTRI WIDTH 12.6 % (11.5-15.5)
[2024-03-07 16:11] LABS: ALBUMIN 4.3 g/dL (3.2-5.0); CREATININE 0.9 mg/dL (0.7-1.3); POTASSIUM 4.2 mmol/l (3.5-5.1); TOTAL PROTEIN 7.2 g/dL (6.3-8.2)
[2024-03-07 16:12] LABS: BILIRUBIN, TOTAL 0.7 mg/dL (0.2-1.3)
[2024-03-07 16:30] VITALS: BP 94/53
[2024-03-07 17:00] VITALS: BP 90/54
[2024-03-07 17:30] VITALS: BP 81/44
[2024-03-07 17:32] VITALS: BP 89/59
[2024-03-07] MEDS ORDERED: ACETAMINOPHEN 500 MG TAB PO ONE (17:40)
[2024-03-07 17:41] VITALS: BP 89/59
== END 2024-03-07 17:48 | disposition home or self-care (01) ==
LOC: ED 15:22
PROVIDERS: Family Medicine
DX: M54.2 Cervicalgia (principal); E11.9 Type 2 diabetes mellitus without complications; I10 Essential (primary) hypertension; G40.909 Epilepsy, unspecified, not intractable, without status epilepticus; Z95.818 Presence of other cardiac implants and grafts; F41.9 Anxiety disorder, unspecified; F32.A Depression, unspecified

== ENCOUNTER 2024-04-23 22:48 | Emergency (ER) | payer MEDICARE ==
[~2024-04-23] VITALS: Ht 177.8 cm; Wt 71.0 kg
[2024-04-23 23:20] VITALS: BP 130/78
[2024-04-23] MEDS ORDERED: ACETAMINOPHEN 500 MG TAB PO ONE (23:40)
[2024-04-23] MEDS ORDERED: DOXYCYCLINE HYCLATE 100 MG/CAP PO ONE (23:40)
[2024-04-23] MEDS ORDERED: IBUPROFEN 600 MG/TAB PO ONE (23:40)
[2024-04-23] MEDS ORDERED: VIBRAMYCIN100 M2 PO (23:58)
== END 2024-04-24 00:18 | disposition home or self-care (01) ==
LOC: ED 22:48
DX: L03.011 Cellulitis of right finger (principal); I10 Essential (primary) hypertension; E11.9 Type 2 diabetes mellitus without complications; G40.909 Epilepsy, unspecified, not intractable, without status epilepticus; F41.9 Anxiety disorder, unspecified; F32.A Depression, unspecified; Z86.73 Personal history of transient ischemic attack (TIA), and cerebral infarction without residual deficits; Z95.818 Presence of other cardiac implants and grafts

== ENCOUNTER 2024-06-15 00:11 | Emergency (ER) | payer MEDICARE ==
[2024-06-15] VITALS (13 sets, daily range): BP systolic 97–137; BP diastolic 64–84
[~2024-06-15] VITALS: Ht 177.8 cm; Wt 75.0 kg
[2024-06-15 00:56] LABS: BASO% 0.5 % (0-3); HEMATOCRIT 39.4 % (39.0-50.0); HEMOGLOBIN 13.2 g/dl (14.0-18.0); IMMATURE GRANULOCYTES 0.1 % (0.0-5.0); LYMPH% 24.3 % (15-41); MEAN CELL VOLUME 96.1 fL CALC (80.0-100.0); MEAN CORPUSCULAR HGB 32.2 pG CALC (26.0-32.0); MEAN CORPUSCULAR HGB CONC 33.5 g/dL CAL (32.0-36.0); MONO% 5.9 % (2-13); NEUT# 5.37 thou/uL (1.82-7.42); NEUT% 66.2 % (42-76); RED BLOOD COUNT 4.1 mill/uL (4.70-6.10); RED CELL DISTRI WIDTH 12.3 % (11.5-15.5)
[2024-06-15 01:21] LABS: ALBUMIN 3.9 g/dL (3.2-5.0); CREATININE 0.8 mg/dL (0.7-1.3); POTASSIUM 4.1 mmol/l (3.5-5.1); TOTAL PROTEIN 6.6 g/dL (6.3-8.2)
[2024-06-15 01:22] LABS: BILIRUBIN, TOTAL 0.3 mg/dL (0.2-1.3)
== END 2024-06-15 03:42 | disposition home or self-care (01) ==
LOC: ED 00:11
PROVIDERS: Emergency Medicine
DX: G40.409 Other generalized epilepsy and epileptic syndromes, not intractable, without status epilepticus (principal); I10 Essential (primary) hypertension; E11.9 Type 2 diabetes mellitus without complications; E78.5 Hyperlipidemia, unspecified; F32.A Depression, unspecified; F41.9 Anxiety disorder, unspecified; Z86.73 Personal history of transient ischemic attack (TIA), and cerebral infarction without residual deficits; Z95.818 Presence of other cardiac implants and grafts
CPT/HCPCS: J1953